=== PATIENT | female | born 1985 | race Caucasian/White ===

== ENCOUNTER 2022-12-12 09:28 | Inpatient (IN) | payer MEDICAID, OTHER ==
[~2022-12-12] VITALS: Ht 152.4 cm; Wt 44.0 kg
[~2022-12-12 09:28] MED LIST: GABA-1181 PO; QUET100T PO; VENL50TA44 PO
[2022-12-12] MEDS ORDERED: LIDOCAINE 2%/EPI 1:200,000/PF 20 ML VIAL SQ ONE (10:00)
[2022-12-12 10:18] LABS: ANION GAP 7 mmol/L (8-16); CALCIUM, TOTAL 10.1 mg/dL (8.8-10.5); CARBON DIOXIDE 26 mmol/L (22-29); CHLORIDE 101 mmol/L (98-107); CREATININE 0.78 mg/dL (0.60-1.30); GLUCOSE,RANDOM 234 mg/dL (70-110); POTASSIUM 3.9 mmol/L (3.5-5.1); SODIUM SERUM 134 mmol/L (136-145); UREA NITROGEN, BLOOD 16 mg/dL (7-18)
[2022-12-12 10:20] LABS: GLOMERULAR FILTR. RATE CALC > 60 mL/min (>60)
[2022-12-12 10:23] LABS: ALANINE AMINOTRANSFERASE 38 U/L (12-78); ALBUMIN 3.3 g/dL (3.4-5.0); ALKALINE PHOSPHATASE 72 U/L (46-116); ASPARTATE AMINOTRANSFERASE 49 U/L (15-37); BASOPHILS % (AUTO) 0.9 % (0.0-2.0); BILIRUBIN,TOTAL 0.5 mg/dL (0.1-1.0); EOSINOPHILS % (AUTO) 2.5 % (1.0-6.0); HEMATOCRIT 36.9 % (36-46); HEMOGLOBIN 11.5 g/dL (12.0-16.0); LYMPHOCYTES # (AUTO) 3.3 K/uL (1.0-4.8); LYMPHOCYTES % (AUTO) 41.9 % (22.0-44.0); MEAN CORPUSCULAR HEMOGLOBIN 23.4 pg (26.0-34.0); MEAN CORPUSCULAR HGB CONC 31.1 G/dL (31.0-37.0); MEAN CORPUSCULAR VOLUME 75 fL (80-100); MONOCYTES # (AUTO) 0.8 K/uL (0.1-1.0); MONOCYTES % (AUTO) 9.8 % (2.0-9.0); NEUTROPHILS # (AUTO) 3.6 K/uL (1.8-7.7); NEUTROPHILS % (AUTO) 44.9 % (40.0-70.0); PLATELET COUNT (AUTO) 386 K/uL (150-450); RED BLOOD CELL COUNT(AUTO) 4.91 MIL/uL (4.00-5.20); RED CELL DISTRIBUTION WIDTH 20.3 % (11.5-14.5); TOTAL PROTEIN, SERUM 7.3 g/dL (6.4-8.2)
[2022-12-12] MEDS ORDERED: FLUO20CA36 PO (10:30)
[2022-12-12] MEDS ORDERED: HYDR-3831 PO (10:30)
[2022-12-12] MEDS ORDERED: METO25XL PO (10:30)
[2022-12-12] MEDS ORDERED: APIX2.5T PO (10:30)
[2022-12-12] MEDS ORDERED: LISI-892 PO (10:30)
[2022-12-12 10:35] LABS: AMPHET/METH SCREEN,URINE NEGATIVE (NEGATIVE); BARBITURATE SCREEN, URINE NEGATIVE (NEGATIVE); BENZODIAZEPINES SCREEN,URINE NEGATIVE (NEGATIVE); CANNABINOID SCREEN,URINE NEGATIVE (NEGATIVE); COCAINE SCREEN,URINE NEGATIVE (NEGATIVE); METHADONE SCREEN, URINE NEGATIVE (NEGATIVE); OPIATE SCREEN,URINE NEGATIVE (NEGATIVE)
[2022-12-12] MEDS ORDERED: LIDOCAINE 1% 10 ML VIAL ONE ×2 (10:39→19:16)
[2022-12-12 10:40] LABS: PHENCYCLIDINE SCREEN,URINE NEGATIVE (NEGATIVE)
[2022-12-12] MEDS ORDERED: SODIUM CHLORIDE 0.9% 1,000 ML IV ONE (10:45)
[2022-12-12] MEDS ORDERED: PERTUSS(ACELL),DIPH,TET VAC/PF 0.5 ML SYRINGE IM. ONE (11:15)
[2022-12-12] MEDS ORDERED: BACITRACIN 0.9 GM PACKET OINTMENT TP ONE (11:15)
[2022-12-12] MEDS ORDERED: OLANZapine 5 MG RAPDIS TABLET PO PRN (12:45)
[2022-12-12] MEDS ORDERED: BUME1TAB6 PO (12:47)
[2022-12-12] MEDS ORDERED: VENL-68 PO (12:47)
[2022-12-12] MEDS ORDERED: OMEP40CA21 PO (12:47)
[2022-12-12] MEDS ORDERED: APIX5TAB PO (12:47)
[2022-12-12] MEDS ORDERED: HYDR-4808 PO (12:47)
[2022-12-12 12:51] LABS: COVID AG,FIA SOURCE NASAL SWAB
[2022-12-12] MEDS ORDERED: ACETAMINOPHEN 500 MG TABLET PO ONE (13:30)
[2022-12-12] MEDS ORDERED: CEPHALEXIN MONOHYDRATE 500 MG CAPSULE PO ONE (14:00)
[2022-12-12 16:15] VITALS: BP 148/90
[2022-12-12] MEDS: APIXABAN 5 MG TABLET PO SCH ×2 (17:30→18:20)
[2022-12-12] MEDS: GABAPENTIN 300 MG CAPSULE PO SCH (18:20)
[2022-12-12] MEDS ORDERED: TUBERCULIN, PURIFIED PROTEIN DERIVATIVE 5 TU/0.1 ML SYRINGE ID ONE (18:30)
[2022-12-12] MEDS ORDERED: MAGNESIUM HYDROXIDE SUSPENSION 30 ML UDCUP PO PRN (18:30)
[2022-12-12] MEDS ORDERED: QUEtiapine FUMARATE 100 MG TABLET PO PRN (18:30)
[2022-12-12] MEDS ORDERED: PROMETHAZINE HCL 25 MG TABLET PO PRN (18:30)
[2022-12-12] MEDS ORDERED: LOPERAMIDE HCL 2 MG CAPSULE PO PRN (18:30)
[2022-12-12] MEDS ORDERED: HydrOXYzine PAMOATE 50 MG CAPSULE PO PRN (18:30)
[2022-12-12] MEDS ORDERED: MAG HYDROX/AL HYDROX/SIMETH ES 30 ML SUSPENSION UDCUP PO PRN (18:30)
[2022-12-12] MEDS: MELATONIN 5 MG TABLET PO SCH (20:33)
[2022-12-12] MEDS: OLANZapine 5 MG RAPDIS TABLET PO SCH (20:33)
[2022-12-12 20:35] VITALS: BP 129/78
[2022-12-12] MEDS ORDERED: QUEtiapine FUMARATE 200 MG TABLET PO SCH (21:00)
[2022-12-12] MEDS: ACETAMINOPHEN 325 MG TABLET PO PRN (22:17)
[2022-12-13] MEDS: LORazepam 2 MG TABLET PO PRN ×3 (00:36→22:57)
[2022-12-13] MEDS: ZOLPIDEM TARTRATE 10 MG TABLET PO PRN (00:37)
[2022-12-13 04:10] VITALS: BP 110/62
[2022-12-13] MEDS: ACETAMINOPHEN 325 MG TABLET PO PRN (04:17)
[2022-12-13 07:25] LABS: HEMOGLOBIN A1C 7.9 % (3.8-5.6)
[2022-12-13 07:35] LABS: CHOL/HDL RATIO 6.1 (3.9-5.7); CHOLESTEROL 209 mg/dL (131-200); FREE T4 (FREE THYROXINE) 0.87 ng/dL (0.76-1.46); HDL CHOLESTEROL 34 mg/dL (40-60); LDL CHOL (CALC.) 114 mg/dL (0-130); THYROID STIMULATING HORMONE 1.01 uIU/mL (0.36-3.74); TRIGLYCERIDES 305 mg/dL (15-150)
[2022-12-13] MEDS: BUMETANIDE 1 MG TABLET PO SCH ×2 (08:27→16:53)
[2022-12-13] MEDS: GABAPENTIN 300 MG CAPSULE PO SCH ×3 (08:27→16:53)
[2022-12-13] MEDS: APIXABAN 5 MG TABLET PO SCH ×2 (08:27→16:53)
[2022-12-13] MEDS: OMEGA-3/DHA/EPA/FISH OIL 1,000 MG CAPSULE PO SCH (08:27)
[2022-12-13] MEDS: FLUoxetine HCL 20 MG CAPSULE PO SCH (08:28)
[2022-12-13] MEDS: FOLIC ACID 1 MG TABLET PO SCH (08:28)
[2022-12-13] MEDS: MULTIVITAMINS WITH MINERALS, THERAPEUTIC TABLET PO SCH (08:28)
[2022-12-13] MEDS: OMEPRAZOLE 20 MG CAPSULE PO SCH (08:28)
[2022-12-13] MEDS: METOPROLOL SUCCINATE 25 MG ER TABLET PO SCH (08:28)
[2022-12-13] MEDS: THIAMINE 100 MG TABLET PO SCH ×2 (08:28→16:54)
[2022-12-13] MEDS: LISINOPRIL 5 MG TABLET PO SCH (08:28)
[2022-12-13] MEDS ORDERED: IBUPROFEN 600 MG TABLET PO PRN (08:45)
[2022-12-13 09:00] VITALS: BP 115/78
[2022-12-13] MEDS ORDERED: DEXTROSE 50%-WATER 25 GM/50 ML SYRINGE IVP PRN (09:00)
[2022-12-13] MEDS ORDERED: GABAPENTIN 300 MG CAPSULE PO SCH (09:00)
[2022-12-13 09:47] LABS: HCG,QUANTITATIVE < 1 mIU/mL (0-6)
[2022-12-13 11:46] LABS: GLUCOMETER DEV NAME(LOC) 3E.I 2; GLUCOSE,POINT OF CARE 199 MG/DL (70-110)
[2022-12-13] MEDS: INSULIN LISPRO 100 UNITS/ML SQ PRN ×3 (11:56→21:10)
[2022-12-13] MEDS: MetFORMIN HCL 500 MG TABLET PO SCH (16:53)
[2022-12-13 16:56] LABS: GLUCOMETER DEV NAME(LOC) 3E.I 2; GLUCOSE,POINT OF CARE 167 MG/DL (70-110)
[2022-12-13 17:12] VITALS: BP 103/72
[2022-12-13] MEDS: OLANZapine 5 MG RAPDIS TABLET PO SCH (20:43)
[2022-12-13] MEDS: MELATONIN 5 MG TABLET PO SCH (20:44)
[2022-12-13 21:21] LABS: GLUCOMETER DEV NAME(LOC) 3E.I 2; GLUCOSE,POINT OF CARE 164 MG/DL (70-110)
[2022-12-14] MEDS: ZOLPIDEM TARTRATE 10 MG TABLET PO PRN ×2 (00:21→21:42)
[2022-12-14 06:17] LABS: GLUCOMETER DEV NAME(LOC) 3E.I 2; GLUCOSE,POINT OF CARE 143 MG/DL (70-110)
[2022-12-14] MEDS: INSULIN LISPRO 100 UNITS/ML SQ PRN ×2 (06:48→21:06)
[2022-12-14] MEDS: MetFORMIN HCL 500 MG TABLET PO SCH ×3 (06:58→16:32)
[2022-12-14 08:00] VITALS: BP 106/67
[2022-12-14] MEDS: GABAPENTIN 300 MG CAPSULE PO SCH ×3 (09:08→16:05)
[2022-12-14] MEDS: OMEPRAZOLE 20 MG CAPSULE PO SCH (09:08)
[2022-12-14] MEDS: OMEGA-3/DHA/EPA/FISH OIL 1,000 MG CAPSULE PO SCH (09:08)
[2022-12-14] MEDS: FLUoxetine HCL 20 MG CAPSULE PO SCH (09:08)
[2022-12-14] MEDS: THIAMINE 100 MG TABLET PO SCH ×2 (09:08→16:05)
[2022-12-14] MEDS: LamoTRIgine 25 MG TABLET PO SCH (09:08)
[2022-12-14] MEDS: MULTIVITAMINS WITH MINERALS, THERAPEUTIC TABLET PO SCH (09:08)
[2022-12-14] MEDS: LISINOPRIL 5 MG TABLET PO SCH (09:09)
[2022-12-14] MEDS: FOLIC ACID 1 MG TABLET PO SCH (09:09)
[2022-12-14] MEDS: APIXABAN 5 MG TABLET PO SCH ×2 (09:09→16:05)
[2022-12-14] MEDS: BUMETANIDE 1 MG TABLET PO SCH ×2 (09:10→16:05)
[2022-12-14] MEDS: METOPROLOL SUCCINATE 25 MG ER TABLET PO SCH (09:10)
[2022-12-14 12:21] LABS: GLUCOMETER DEV NAME(LOC) 3E.I 2; GLUCOSE,POINT OF CARE 128 MG/DL (70-110)
[2022-12-14 16:47] LABS: GLUCOMETER DEV NAME(LOC) 3E.I 2; GLUCOSE,POINT OF CARE 117 MG/DL (70-110)
[2022-12-14] MEDS: OXYMETAZOLINE 0.05% NASAL SCH (17:19)
[2022-12-14] MEDS: LORazepam 2 MG TABLET PO PRN (19:30)
[2022-12-14 20:56] LABS: GLUCOMETER DEV NAME(LOC) 3E.I 2; GLUCOSE,POINT OF CARE 164 MG/DL (70-110)
[2022-12-14] MEDS: OLANZapine 10 MG RAPDIS TABLET PO SCH (20:56)
[2022-12-14] MEDS: MELATONIN 5 MG TABLET PO SCH (20:56)
[2022-12-15 06:26] LABS: GLUCOMETER DEV NAME(LOC) 3E.I 2; GLUCOSE,POINT OF CARE 145 MG/DL (70-110)
[2022-12-15] MEDS: MetFORMIN HCL 500 MG TABLET PO SCH ×2 (06:39→17:05)
[2022-12-15] MEDS: INSULIN LISPRO 100 UNITS/ML SQ PRN ×3 (06:39→21:09)
[2022-12-15 08:00] VITALS: BP 119/61
[2022-12-15] MEDS: GABAPENTIN 300 MG CAPSULE PO SCH ×3 (08:35→17:06)
[2022-12-15] MEDS: MULTIVITAMINS WITH MINERALS, THERAPEUTIC TABLET PO SCH (08:35)
[2022-12-15] MEDS: OMEGA-3/DHA/EPA/FISH OIL 1,000 MG CAPSULE PO SCH (08:35)
[2022-12-15] MEDS: OXYMETAZOLINE 0.05% NASAL SCH ×2 (08:35→17:05)
[2022-12-15] MEDS: METOPROLOL SUCCINATE 25 MG ER TABLET PO SCH (08:36)
[2022-12-15] MEDS: BUMETANIDE 1 MG TABLET PO SCH ×2 (08:36→17:06)
[2022-12-15] MEDS: FLUoxetine HCL 20 MG CAPSULE PO SCH (08:36)
[2022-12-15] MEDS: APIXABAN 5 MG TABLET PO SCH ×2 (08:36→17:06)
[2022-12-15] MEDS: OMEPRAZOLE 20 MG CAPSULE PO SCH (08:36)
[2022-12-15] MEDS: FOLIC ACID 1 MG TABLET PO SCH (08:36)
[2022-12-15] MEDS: LISINOPRIL 5 MG TABLET PO SCH (08:37)
[2022-12-15] MEDS: THIAMINE 100 MG TABLET PO SCH ×2 (08:37→17:06)
[2022-12-15] MEDS: LamoTRIgine 25 MG TABLET PO SCH (08:38)
[2022-12-15 11:26] LABS: GLUCOMETER DEV NAME(LOC) 3E.I 2; GLUCOSE,POINT OF CARE 133 MG/DL (70-110)
[2022-12-15 16:00] VITALS: BP 104/59
[2022-12-15 17:06] LABS: GLUCOMETER DEV NAME(LOC) 3E.I 2; GLUCOSE,POINT OF CARE 144 MG/DL (70-110)
[2022-12-15] MEDS: LORazepam 2 MG TABLET PO PRN (19:46)
[2022-12-15 20:56] LABS: GLUCOMETER DEV NAME(LOC) 3E.I 2; GLUCOSE,POINT OF CARE 171 MG/DL (70-110)
[2022-12-15] MEDS: OLANZapine 10 MG RAPDIS TABLET PO SCH (21:21)
[2022-12-15] MEDS: MELATONIN 5 MG TABLET PO SCH (21:21)
[2022-12-15] MEDS: ZOLPIDEM TARTRATE 10 MG TABLET PO PRN (22:51)
[2022-12-16] MEDS: LORazepam 2 MG TABLET PO PRN (02:29)
[2022-12-16] MEDS: OLANZapine 5 MG RAPDIS TABLET PO PRN (02:29)
[2022-12-16 06:26] LABS: GLUCOMETER DEV NAME(LOC) 3E.I 2; GLUCOSE,POINT OF CARE 140 MG/DL (70-110)
[2022-12-16] MEDS: MetFORMIN HCL 500 MG TABLET PO SCH ×2 (06:36→16:53)
[2022-12-16 08:00] VITALS: BP 103/66
[2022-12-16] MEDS: METOPROLOL SUCCINATE 25 MG ER TABLET PO SCH (09:00)
[2022-12-16] MEDS: LISINOPRIL 5 MG TABLET PO SCH (09:00)
[2022-12-16] MEDS: OXYMETAZOLINE 0.05% NASAL SCH ×2 (09:16→16:51)
[2022-12-16] MEDS: BUMETANIDE 1 MG TABLET PO SCH ×2 (09:18→16:51)
[2022-12-16] MEDS: APIXABAN 5 MG TABLET PO SCH ×2 (09:18→16:52)
[2022-12-16] MEDS: THIAMINE 100 MG TABLET PO SCH ×2 (09:21→16:53)
[2022-12-16] MEDS: LamoTRIgine 25 MG TABLET PO SCH (09:21)
[2022-12-16] MEDS: OMEGA-3/DHA/EPA/FISH OIL 1,000 MG CAPSULE PO SCH (09:21)
[2022-12-16] MEDS: MULTIVITAMINS WITH MINERALS, THERAPEUTIC TABLET PO SCH (09:21)
[2022-12-16] MEDS: OMEPRAZOLE 20 MG CAPSULE PO SCH (09:21)
[2022-12-16] MEDS: GABAPENTIN 300 MG CAPSULE PO SCH ×3 (09:21→16:53)
[2022-12-16] MEDS: FLUoxetine HCL 20 MG CAPSULE PO SCH (09:22)
[2022-12-16] MEDS: FOLIC ACID 1 MG TABLET PO SCH (09:29)
[2022-12-16 11:11] LABS: GLUCOMETER DEV NAME(LOC) 3E.I 2; GLUCOSE,POINT OF CARE 121 MG/DL (70-110)
[2022-12-16 16:00] VITALS: BP 101/60
[2022-12-16 16:37] LABS: GLUCOMETER DEV NAME(LOC) 3E.I 2; GLUCOSE,POINT OF CARE 177 MG/DL (70-110)
[2022-12-16] MEDS: INSULIN LISPRO 100 UNITS/ML SQ PRN ×2 (16:56→21:17)
[2022-12-16] MEDS: OLANZapine 10 MG RAPDIS TABLET PO SCH (20:22)
[2022-12-16] MEDS: MELATONIN 5 MG TABLET PO SCH (20:23)
[2022-12-16 20:56] LABS: GLUCOMETER DEV NAME(LOC) 3E.I 2; GLUCOSE,POINT OF CARE 164 MG/DL (70-110)
[2022-12-17 05:56] LABS: GLUCOMETER DEV NAME(LOC) 3E.I 2; GLUCOSE,POINT OF CARE 140 MG/DL (70-110)
[2022-12-17] MEDS: MetFORMIN HCL 500 MG TABLET PO SCH ×2 (06:35→16:30)
[2022-12-17] MEDS: OMEGA-3/DHA/EPA/FISH OIL 1,000 MG CAPSULE PO SCH (10:04)
[2022-12-17] MEDS: GABAPENTIN 300 MG CAPSULE PO SCH ×3 (10:04→16:30)
[2022-12-17] MEDS: FOLIC ACID 1 MG TABLET PO SCH (10:04)
[2022-12-17] MEDS: METOPROLOL SUCCINATE 25 MG ER TABLET PO SCH (10:04)
[2022-12-17] MEDS: LamoTRIgine 25 MG TABLET PO SCH ×2 (10:04→13:50)
[2022-12-17] MEDS: MULTIVITAMINS WITH MINERALS, THERAPEUTIC TABLET PO SCH (10:04)
[2022-12-17] MEDS: OMEPRAZOLE 20 MG CAPSULE PO SCH (10:05)
[2022-12-17] MEDS: THIAMINE 100 MG TABLET PO SCH ×2 (10:05→16:30)
[2022-12-17] MEDS: FLUoxetine HCL 20 MG CAPSULE PO SCH (10:05)
[2022-12-17] MEDS: LISINOPRIL 5 MG TABLET PO SCH (10:06)
[2022-12-17] MEDS: OXYMETAZOLINE 0.05% NASAL SCH ×2 (10:07→16:31)
[2022-12-17] MEDS: APIXABAN 5 MG TABLET PO SCH ×2 (10:08→16:31)
[2022-12-17] MEDS: BUMETANIDE 1 MG TABLET PO SCH ×2 (10:08→16:31)
[2022-12-17 11:12] VITALS: BP 107/60
[2022-12-17 12:06] LABS: GLUCOMETER DEV NAME(LOC) 3E.I 2; GLUCOSE,POINT OF CARE 128 MG/DL (70-110)
[2022-12-17] MEDS: INSULIN LISPRO 100 UNITS/ML SQ PRN ×2 (12:12→21:34)
[2022-12-17 16:36] LABS: GLUCOMETER DEV NAME(LOC) 3E.I 2; GLUCOSE,POINT OF CARE 99 MG/DL (70-110)
[2022-12-17 20:42] LABS: GLUCOMETER DEV NAME(LOC) 3E.I 2; GLUCOSE,POINT OF CARE 174 MG/DL (70-110)
[2022-12-17] MEDS: MELATONIN 5 MG TABLET PO SCH (20:46)
[2022-12-17] MEDS: OLANZapine 10 MG RAPDIS TABLET PO SCH (20:46)
[2022-12-18 06:13] LABS: GLUCOMETER DEV NAME(LOC) 3E.I 2; GLUCOSE,POINT OF CARE 110 MG/DL (70-110)
[2022-12-18] MEDS: MetFORMIN HCL 500 MG TABLET PO SCH ×2 (06:43→16:41)
[2022-12-18] MEDS: INSULIN LISPRO 100 UNITS/ML SQ PRN ×3 (06:44→20:55)
[2022-12-18 08:00] VITALS: BP 101/63
[2022-12-18 08:02] LABS: COVID AG,FIA SOURCE NASAL SWAB
[2022-12-18] MEDS: LamoTRIgine 25 MG TABLET PO SCH (09:25)
[2022-12-18] MEDS: LISINOPRIL 5 MG TABLET PO SCH (09:25)
[2022-12-18] MEDS: THIAMINE 100 MG TABLET PO SCH ×2 (09:25→16:41)
[2022-12-18] MEDS: APIXABAN 5 MG TABLET PO SCH ×2 (09:25→16:41)
[2022-12-18] MEDS: OMEGA-3/DHA/EPA/FISH OIL 1,000 MG CAPSULE PO SCH (09:25)
[2022-12-18] MEDS: OXYMETAZOLINE 0.05% NASAL SCH ×2 (09:26→16:42)
[2022-12-18] MEDS: MULTIVITAMINS WITH MINERALS, THERAPEUTIC TABLET PO SCH (09:26)
[2022-12-18] MEDS: FLUoxetine HCL 20 MG CAPSULE PO SCH (09:26)
[2022-12-18] MEDS: BUMETANIDE 1 MG TABLET PO SCH ×2 (09:26→16:41)
[2022-12-18] MEDS: GABAPENTIN 300 MG CAPSULE PO SCH ×3 (09:26→16:41)
[2022-12-18] MEDS: METOPROLOL SUCCINATE 25 MG ER TABLET PO SCH (09:26)
[2022-12-18] MEDS: OMEPRAZOLE 20 MG CAPSULE PO SCH (09:26)
[2022-12-18] MEDS: FOLIC ACID 1 MG TABLET PO SCH (09:26)
[2022-12-18 11:36] LABS: GLUCOMETER DEV NAME(LOC) 3E.I 2; GLUCOSE,POINT OF CARE 122 MG/DL (70-110)
[2022-12-18 16:00] VITALS: BP 102/53
[2022-12-18 16:17] LABS: GLUCOMETER DEV NAME(LOC) 3E.I 2; GLUCOSE,POINT OF CARE 209 MG/DL (70-110)
[2022-12-18] MEDS: ACETAMINOPHEN 325 MG TABLET PO PRN (20:25)
[2022-12-18 20:26] VITALS: BP 136/75
[2022-12-18] MEDS: MELATONIN 5 MG TABLET PO SCH (20:26)
[2022-12-18] MEDS: OLANZapine 10 MG RAPDIS TABLET PO SCH (20:28)
[2022-12-18 20:34] LABS: GLUCOMETER DEV NAME(LOC) 3E.I 2; GLUCOSE,POINT OF CARE 119 MG/DL (70-110)
[2022-12-18] MEDS: ZOLPIDEM TARTRATE 10 MG TABLET PO PRN (21:39)
[2022-12-19] MEDS: MetFORMIN HCL 500 MG TABLET PO SCH ×2 (06:39→17:21)
[2022-12-19] MEDS: INSULIN LISPRO 100 UNITS/ML SQ PRN ×2 (06:57→20:23)
[2022-12-19 07:04] LABS: GLUCOMETER DEV NAME(LOC) 3E.I 2; GLUCOSE,POINT OF CARE 119 MG/DL (70-110)
[2022-12-19 08:06] VITALS: BP 102/56
[2022-12-19] MEDS: LamoTRIgine 25 MG TABLET PO SCH (08:10)
[2022-12-19] MEDS: LISINOPRIL 5 MG TABLET PO SCH (08:10)
[2022-12-19] MEDS: APIXABAN 5 MG TABLET PO SCH ×2 (08:10→16:28)
[2022-12-19] MEDS: FLUoxetine HCL 20 MG CAPSULE PO SCH (08:10)
[2022-12-19] MEDS: FOLIC ACID 1 MG TABLET PO SCH (08:10)
[2022-12-19] MEDS: MULTIVITAMINS WITH MINERALS, THERAPEUTIC TABLET PO SCH (08:10)
[2022-12-19] MEDS: OMEGA-3/DHA/EPA/FISH OIL 1,000 MG CAPSULE PO SCH (08:10)
[2022-12-19] MEDS: OMEPRAZOLE 20 MG CAPSULE PO SCH (08:10)
[2022-12-19] MEDS: GABAPENTIN 300 MG CAPSULE PO SCH ×3 (08:10→16:28)
[2022-12-19] MEDS: OXYMETAZOLINE 0.05% NASAL SCH ×2 (08:10→16:29)
[2022-12-19] MEDS: THIAMINE 100 MG TABLET PO SCH ×2 (08:10→16:29)
[2022-12-19] MEDS: BUMETANIDE 1 MG TABLET PO SCH ×2 (08:13→16:29)
[2022-12-19] MEDS: METOPROLOL SUCCINATE 25 MG ER TABLET PO SCH (09:00)
[2022-12-19 11:57] LABS: GLUCOMETER DEV NAME(LOC) 3E.I 2; GLUCOSE,POINT OF CARE 125 MG/DL (70-110)
[2022-12-19 14:42] VITALS: BP 118/64
[2022-12-19] MEDS: ACETAMINOPHEN 325 MG TABLET PO PRN (14:42)
[2022-12-19 15:42] VITALS: BP 106/74
[2022-12-19 16:31] LABS: GLUCOMETER DEV NAME(LOC) 3E.I 2; GLUCOSE,POINT OF CARE 130 MG/DL (70-110)
[2022-12-19 16:40] VITALS: BP 114/73
[2022-12-19] MEDS: OLANZapine 10 MG RAPDIS TABLET PO SCH (20:11)
[2022-12-19] MEDS: MELATONIN 5 MG TABLET PO SCH (20:11)
[2022-12-19 20:30] LABS: GLUCOMETER DEV NAME(LOC) 3E.I 2; GLUCOSE,POINT OF CARE 242 MG/DL (70-110)
[2022-12-19 20:58] VITALS: BP 106/7
[2022-12-19] MEDS: ZOLPIDEM TARTRATE 10 MG TABLET PO PRN (21:02)
[2022-12-20 05:41] LABS: GLUCOMETER DEV NAME(LOC) 3E.I 2; GLUCOSE,POINT OF CARE 128 MG/DL (70-110)
[2022-12-20] MEDS: MetFORMIN HCL 500 MG TABLET PO SCH ×2 (06:35→16:18)
[2022-12-20] MEDS: OMEGA-3/DHA/EPA/FISH OIL 1,000 MG CAPSULE PO SCH (08:22)
[2022-12-20] MEDS: OMEPRAZOLE 20 MG CAPSULE PO SCH (08:23)
[2022-12-20] MEDS: MULTIVITAMINS WITH MINERALS, THERAPEUTIC TABLET PO SCH (08:23)
[2022-12-20] MEDS: FLUoxetine HCL 20 MG CAPSULE PO SCH (08:23)
[2022-12-20] MEDS: GABAPENTIN 300 MG CAPSULE PO SCH ×3 (08:23→16:18)
[2022-12-20] MEDS: FOLIC ACID 1 MG TABLET PO SCH (08:24)
[2022-12-20] MEDS: BUMETANIDE 1 MG TABLET PO SCH ×2 (08:24→16:18)
[2022-12-20] MEDS: THIAMINE 100 MG TABLET PO SCH ×2 (08:24→16:18)
[2022-12-20] MEDS: LISINOPRIL 5 MG TABLET PO SCH (08:24)
[2022-12-20] MEDS: METOPROLOL SUCCINATE 25 MG ER TABLET PO SCH (08:24)
[2022-12-20] MEDS: OXYMETAZOLINE 0.05% NASAL SCH ×2 (08:25→16:20)
[2022-12-20] MEDS: APIXABAN 5 MG TABLET PO SCH ×2 (08:25→16:18)
[2022-12-20] MEDS: LamoTRIgine 25 MG TABLET PO SCH (08:28)
[2022-12-20 08:34] VITALS: BP 113/67
[2022-12-20 13:18] VITALS: BP 122/78
[2022-12-20] MEDS: ACETAMINOPHEN 325 MG TABLET PO PRN (13:23)
[2022-12-20 17:07] LABS: GLUCOMETER DEV NAME(LOC) 3E.I 2; GLUCOSE,POINT OF CARE 167 MG/DL (70-110)
[2022-12-20] MEDS: INSULIN LISPRO 100 UNITS/ML SQ PRN ×2 (17:33→21:21)
[2022-12-20 17:59] VITALS: BP 107/65
[2022-12-20] MEDS: MELATONIN 5 MG TABLET PO SCH (20:45)
[2022-12-20] MEDS: OLANZapine 10 MG RAPDIS TABLET PO SCH (20:45)
[2022-12-20] MEDS: ZOLPIDEM TARTRATE 10 MG TABLET PO PRN (21:03)
[2022-12-20 21:41] LABS: GLUCOMETER DEV NAME(LOC) 3E.I 2; GLUCOSE,POINT OF CARE 214 MG/DL (70-110)
[2022-12-21] MEDS: MetFORMIN HCL 500 MG TABLET PO SCH ×2 (06:45→16:28)
[2022-12-21] MEDS: INSULIN LISPRO 100 UNITS/ML SQ PRN ×2 (06:46→17:45)
[2022-12-21 07:16] LABS: GLUCOMETER DEV NAME(LOC) 3E.I 2; GLUCOSE,POINT OF CARE 126 MG/DL (70-110)
[2022-12-21 08:30] VITALS: BP 107/65
[2022-12-21] MEDS: METOPROLOL SUCCINATE 25 MG ER TABLET PO SCH (08:35)
[2022-12-21] MEDS: FLUoxetine HCL 20 MG CAPSULE PO SCH (08:35)
[2022-12-21] MEDS: GABAPENTIN 300 MG CAPSULE PO SCH ×3 (08:35→16:28)
[2022-12-21] MEDS: OMEPRAZOLE 20 MG CAPSULE PO SCH (08:35)
[2022-12-21] MEDS: OMEGA-3/DHA/EPA/FISH OIL 1,000 MG CAPSULE PO SCH (08:35)
[2022-12-21] MEDS: APIXABAN 5 MG TABLET PO SCH ×2 (08:35→16:28)
[2022-12-21] MEDS: BUMETANIDE 1 MG TABLET PO SCH ×2 (08:36→16:28)
[2022-12-21] MEDS: FOLIC ACID 1 MG TABLET PO SCH (08:36)
[2022-12-21] MEDS: LISINOPRIL 5 MG TABLET PO SCH (08:36)
[2022-12-21] MEDS: THIAMINE 100 MG TABLET PO SCH ×2 (08:36→16:28)
[2022-12-21] MEDS: MULTIVITAMINS WITH MINERALS, THERAPEUTIC TABLET PO SCH (08:36)
[2022-12-21] MEDS: LamoTRIgine 25 MG TABLET PO SCH (08:36)
[2022-12-21] MEDS: OXYMETAZOLINE 0.05% NASAL SCH ×2 (08:37→16:28)
[2022-12-21 11:51] LABS: GLUCOMETER DEV NAME(LOC) 3E.I 2; GLUCOSE,POINT OF CARE 101 MG/DL (70-110)
[2022-12-21 16:54] VITALS: BP 97/60
[2022-12-21 16:56] LABS: GLUCOMETER DEV NAME(LOC) 3E.I 2; GLUCOSE,POINT OF CARE 152 MG/DL (70-110)
[2022-12-21 17:59] VITALS: BP 149/94
[2022-12-21] MEDS: LORazepam 2 MG TABLET PO PRN (18:00)
[2022-12-21] MEDS: MELATONIN 5 MG TABLET PO SCH (20:15)
[2022-12-21] MEDS: OLANZapine 10 MG RAPDIS TABLET PO SCH (20:15)
[2022-12-21 20:41] LABS: GLUCOMETER DEV NAME(LOC) 3E.I 2; GLUCOSE,POINT OF CARE 135 MG/DL (70-110)
[2022-12-21] MEDS: ZOLPIDEM TARTRATE 10 MG TABLET PO PRN (21:19)
[2022-12-22 06:21] LABS: GLUCOMETER DEV NAME(LOC) 3E.I 2; GLUCOSE,POINT OF CARE 113 MG/DL (70-110)
[2022-12-22] MEDS: MetFORMIN HCL 500 MG TABLET PO SCH ×2 (06:36→16:27)
[2022-12-22] MEDS: APIXABAN 5 MG TABLET PO SCH ×2 (08:35→16:26)
[2022-12-22] MEDS: OXYMETAZOLINE 0.05% NASAL SCH ×2 (08:36→16:26)
[2022-12-22] MEDS: MULTIVITAMINS WITH MINERALS, THERAPEUTIC TABLET PO SCH (08:36)
[2022-12-22] MEDS: GABAPENTIN 300 MG CAPSULE PO SCH ×3 (08:36→16:27)
[2022-12-22] MEDS: LISINOPRIL 5 MG TABLET PO SCH ×2 (08:37→09:00)
[2022-12-22] MEDS: FOLIC ACID 1 MG TABLET PO SCH (08:37)
[2022-12-22] MEDS: OMEGA-3/DHA/EPA/FISH OIL 1,000 MG CAPSULE PO SCH (08:39)
[2022-12-22] MEDS: FLUoxetine HCL 20 MG CAPSULE PO SCH (08:39)
[2022-12-22] MEDS: THIAMINE 100 MG TABLET PO SCH ×2 (08:40→16:27)
[2022-12-22] MEDS: BUMETANIDE 1 MG TABLET PO SCH ×2 (08:40→16:26)
[2022-12-22] MEDS: METOPROLOL SUCCINATE 25 MG ER TABLET PO SCH ×2 (08:40→09:00)
[2022-12-22] MEDS: LamoTRIgine 25 MG TABLET PO SCH (08:40)
[2022-12-22] MEDS: OMEPRAZOLE 20 MG CAPSULE PO SCH (08:40)
[2022-12-22 09:00] VITALS: BP 94/58
[2022-12-22] MEDS: LORazepam 2 MG TABLET PO PRN ×2 (10:34→19:00)
[2022-12-22] MEDS: INSULIN LISPRO 100 UNITS/ML SQ PRN (11:31)
[2022-12-22 11:46] LABS: GLUCOMETER DEV NAME(LOC) 3E.I 2; GLUCOSE,POINT OF CARE 176 MG/DL (70-110)
[2022-12-22 16:00] VITALS: BP 101/67
[2022-12-22 17:51] LABS: GLUCOMETER DEV NAME(LOC) 3E.I 2; GLUCOSE,POINT OF CARE 117 MG/DL (70-110)
[2022-12-22 20:21] LABS: GLUCOMETER DEV NAME(LOC) 3E.I 2; GLUCOSE,POINT OF CARE 176 MG/DL (70-110)
[2022-12-22] MEDS: OLANZapine 10 MG RAPDIS TABLET PO SCH (20:30)
[2022-12-22] MEDS: MELATONIN 5 MG TABLET PO SCH (20:31)
[2022-12-22] MEDS: ZOLPIDEM TARTRATE 10 MG TABLET PO PRN (22:47)
[2022-12-23 06:17] LABS: GLUCOMETER DEV NAME(LOC) 3E.I 2; GLUCOSE,POINT OF CARE 120 MG/DL (70-110)
[2022-12-23] MEDS: MetFORMIN HCL 500 MG TABLET PO SCH ×2 (06:41→17:35)
[2022-12-23 08:16] VITALS: BP 118/69
[2022-12-23] MEDS: MULTIVITAMINS WITH MINERALS, THERAPEUTIC TABLET PO SCH (10:42)
[2022-12-23] MEDS: OMEPRAZOLE 20 MG CAPSULE PO SCH (10:42)
[2022-12-23] MEDS: APIXABAN 5 MG TABLET PO SCH ×2 (10:42→17:35)
[2022-12-23] MEDS: FLUoxetine HCL 20 MG CAPSULE PO SCH (10:42)
[2022-12-23] MEDS: GABAPENTIN 400 MG CAPSULE PO SCH ×3 (10:42→17:35)
[2022-12-23] MEDS: METOPROLOL SUCCINATE 25 MG ER TABLET PO SCH (10:42)
[2022-12-23] MEDS: LamoTRIgine 25 MG TABLET PO SCH (10:42)
[2022-12-23] MEDS: OMEGA-3/DHA/EPA/FISH OIL 1,000 MG CAPSULE PO SCH (10:43)
[2022-12-23] MEDS: BUMETANIDE 1 MG TABLET PO SCH ×2 (10:43→17:35)
[2022-12-23] MEDS: LISINOPRIL 5 MG TABLET PO SCH (10:43)
[2022-12-23] MEDS: OXYMETAZOLINE 0.05% NASAL SCH ×2 (10:43→17:35)
[2022-12-23] MEDS: INSULIN LISPRO 100 UNITS/ML SQ PRN ×3 (11:53→20:12)
[2022-12-23 11:56] LABS: GLUCOMETER DEV NAME(LOC) 3E.I 2; GLUCOSE,POINT OF CARE 165 MG/DL (70-110)
[2022-12-23] MEDS: LORazepam 2 MG TABLET PO PRN (12:01)
[2022-12-23] MEDS: OLANZapine 5 MG RAPDIS TABLET PO PRN (12:01)
[2022-12-23 16:20] VITALS: BP 98/61
[2022-12-23 17:25] LABS: GLUCOMETER DEV NAME(LOC) 3E.I 2; GLUCOSE,POINT OF CARE 154 MG/DL (70-110)
[2022-12-23 20:01] LABS: GLUCOMETER DEV NAME(LOC) 3E.I 2; GLUCOSE,POINT OF CARE 192 MG/DL (70-110)
[2022-12-23] MEDS: MELATONIN 5 MG TABLET PO SCH (20:11)
[2022-12-23] MEDS: OLANZapine 10 MG RAPDIS TABLET PO SCH (20:12)
[2022-12-23] MEDS: ZOLPIDEM TARTRATE 10 MG TABLET PO PRN (20:19)
[2022-12-24 06:12] LABS: GLUCOMETER DEV NAME(LOC) 3E.I 2; GLUCOSE,POINT OF CARE 116 MG/DL (70-110)
[2022-12-24] MEDS: MetFORMIN HCL 500 MG TABLET PO SCH ×2 (06:47→16:02)
[2022-12-24] MEDS: GABAPENTIN 300 MG CAPSULE PO SCH ×3 (09:03→16:02)
[2022-12-24] MEDS: OMEPRAZOLE 20 MG CAPSULE PO SCH (09:04)
[2022-12-24] MEDS: FLUoxetine HCL 20 MG CAPSULE PO SCH (09:04)
[2022-12-24] MEDS: OLANZapine 2.5 MG TABLET PO SCH ×3 (09:04→16:02)
[2022-12-24] MEDS: METOPROLOL SUCCINATE 25 MG ER TABLET PO SCH (09:04)
[2022-12-24] MEDS: APIXABAN 5 MG TABLET PO SCH ×2 (09:04→16:02)
[2022-12-24] MEDS: MULTIVITAMINS WITH MINERALS, THERAPEUTIC TABLET PO SCH (09:04)
[2022-12-24] MEDS: LamoTRIgine 25 MG TABLET PO SCH (09:05)
[2022-12-24] MEDS: OXYMETAZOLINE 0.05% NASAL SCH ×2 (09:05→16:03)
[2022-12-24] MEDS: BUMETANIDE 1 MG TABLET PO SCH ×2 (09:05→16:02)
[2022-12-24] MEDS: LISINOPRIL 5 MG TABLET PO SCH (09:05)
[2022-12-24 09:08] VITALS: BP 120/74
[2022-12-24] MEDS: OMEGA-3/DHA/EPA/FISH OIL 1,000 MG CAPSULE PO SCH (09:08)
[2022-12-24 12:06] LABS: GLUCOMETER DEV NAME(LOC) 3E.I 2; GLUCOSE,POINT OF CARE 87 MG/DL (70-110)
[2022-12-24] MEDS: LORazepam 2 MG TABLET PO PRN (15:07)
[2022-12-24 16:11] VITALS: BP 109/73
[2022-12-24 17:37] LABS: GLUCOMETER DEV NAME(LOC) 3E.I 2; GLUCOSE,POINT OF CARE 181 MG/DL (70-110)
[2022-12-24] MEDS: INSULIN LISPRO 100 UNITS/ML SQ PRN ×2 (17:45→20:47)
[2022-12-24 20:26] LABS: GLUCOMETER DEV NAME(LOC) 3E.I 2; GLUCOSE,POINT OF CARE 180 MG/DL (70-110)
[2022-12-24] MEDS: OLANZapine 10 MG RAPDIS TABLET PO SCH (20:47)
[2022-12-24] MEDS: MELATONIN 5 MG TABLET PO SCH (20:47)
[2022-12-25 06:17] LABS: GLUCOMETER DEV NAME(LOC) 3E.I 2; GLUCOSE,POINT OF CARE 177 MG/DL (70-110)
[2022-12-25] MEDS: INSULIN LISPRO 100 UNITS/ML SQ PRN ×3 (06:33→21:08)
[2022-12-25] MEDS: MetFORMIN HCL 500 MG TABLET PO SCH ×3 (06:39→17:04)
[2022-12-25 08:18] VITALS: BP 126/82
[2022-12-25 08:23] LABS: COVID AG,FIA SOURCE NASAL SWAB
[2022-12-25] MEDS: FLUoxetine HCL 20 MG CAPSULE PO SCH (10:16)
[2022-12-25] MEDS: GABAPENTIN 400 MG CAPSULE PO SCH ×3 (10:16→16:01)
[2022-12-25] MEDS: OLANZapine 2.5 MG TABLET PO SCH ×3 (10:16→16:01)
[2022-12-25] MEDS: OMEGA-3/DHA/EPA/FISH OIL 1,000 MG CAPSULE PO SCH (10:17)
[2022-12-25] MEDS: BUMETANIDE 1 MG TABLET PO SCH ×2 (10:17→16:01)
[2022-12-25] MEDS: APIXABAN 5 MG TABLET PO SCH ×2 (10:17→16:01)
[2022-12-25] MEDS: MULTIVITAMINS WITH MINERALS, THERAPEUTIC TABLET PO SCH (10:17)
[2022-12-25] MEDS: OMEPRAZOLE 20 MG CAPSULE PO SCH (10:17)
[2022-12-25] MEDS: LISINOPRIL 5 MG TABLET PO SCH (10:17)
[2022-12-25] MEDS: METOPROLOL SUCCINATE 25 MG ER TABLET PO SCH (10:18)
[2022-12-25] MEDS: LamoTRIgine 25 MG TABLET PO SCH (10:19)
[2022-12-25] MEDS: OXYMETAZOLINE 0.05% NASAL SCH ×2 (10:19→16:01)
[2022-12-25] MEDS: LORazepam 2 MG TABLET PO PRN ×2 (10:25→16:01)
[2022-12-25 11:52] LABS: GLUCOMETER DEV NAME(LOC) 3E.I 2; GLUCOSE,POINT OF CARE 194 MG/DL (70-110)
[2022-12-25 16:18] VITALS: BP 105/66
[2022-12-25 16:33] LABS: GLUCOMETER DEV NAME(LOC) 3E.I 2; GLUCOSE,POINT OF CARE 137 MG/DL (70-110)
[2022-12-25 20:23] LABS: GLUCOMETER DEV NAME(LOC) 3E.I 2; GLUCOSE,POINT OF CARE 158 MG/DL (70-110)
[2022-12-25] MEDS: MELATONIN 5 MG TABLET PO SCH (20:39)
[2022-12-25] MEDS: OLANZapine 10 MG RAPDIS TABLET PO SCH (20:39)
[2022-12-25] MEDS: ZOLPIDEM TARTRATE 10 MG TABLET PO PRN (21:21)
[2022-12-26] MEDS: LORazepam 2 MG TABLET PO PRN ×3 (05:49→16:55)
[2022-12-26 06:08] LABS: GLUCOMETER DEV NAME(LOC) 3E.I 2; GLUCOSE,POINT OF CARE 154 MG/DL (70-110)
[2022-12-26] MEDS: INSULIN LISPRO 100 UNITS/ML SQ PRN ×4 (06:36→21:21)
[2022-12-26] MEDS: MetFORMIN HCL 500 MG TABLET PO SCH ×2 (06:38→16:55)
[2022-12-26] MEDS: LISINOPRIL 5 MG TABLET PO SCH (09:52)
[2022-12-26] MEDS: BUMETANIDE 1 MG TABLET PO SCH ×2 (09:52→16:56)
[2022-12-26] MEDS: OLANZapine 2.5 MG TABLET PO SCH ×2 (09:52→13:05)
[2022-12-26] MEDS: FLUoxetine HCL 20 MG CAPSULE PO SCH (09:52)
[2022-12-26] MEDS: APIXABAN 5 MG TABLET PO SCH ×2 (09:52→16:56)
[2022-12-26] MEDS: OMEGA-3/DHA/EPA/FISH OIL 1,000 MG CAPSULE PO SCH (09:53)
[2022-12-26] MEDS: GABAPENTIN 400 MG CAPSULE PO SCH ×3 (09:53→16:56)
[2022-12-26] MEDS: METOPROLOL SUCCINATE 25 MG ER TABLET PO SCH (09:53)
[2022-12-26] MEDS: OXYMETAZOLINE 0.05% NASAL SCH ×2 (09:54→16:57)
[2022-12-26] MEDS: OMEPRAZOLE 20 MG CAPSULE PO SCH (09:54)
[2022-12-26] MEDS: LamoTRIgine 25 MG TABLET PO SCH (09:55)
[2022-12-26] MEDS: MULTIVITAMINS WITH MINERALS, THERAPEUTIC TABLET PO SCH (09:55)
[2022-12-26 10:37] VITALS: BP 102/62
[2022-12-26 12:09] LABS: GLUCOMETER DEV NAME(LOC) 3E.I 2; GLUCOSE,POINT OF CARE 206 MG/DL (70-110)
[2022-12-26 16:17] VITALS: BP 104/72
[2022-12-26] MEDS: GABAPENTIN 100 MG CAPSULE PO SCH (16:59)
[2022-12-26] MEDS: OLANZapine 5 MG TABLET PO SCH (16:59)
[2022-12-26 17:18] LABS: GLUCOMETER DEV NAME(LOC) 3E.I 2; GLUCOSE,POINT OF CARE 247 MG/DL (70-110)
[2022-12-26 20:28] LABS: GLUCOMETER DEV NAME(LOC) 3E.I 2; GLUCOSE,POINT OF CARE 276 MG/DL (70-110)
[2022-12-26] MEDS: MELATONIN 5 MG TABLET PO SCH (21:00)
[2022-12-26] MEDS: PRAZOSIN HCL 1 MG CAPSULE PO SCH (21:00)
[2022-12-26] MEDS: ZOLPIDEM TARTRATE 10 MG TABLET PO PRN (21:16)
[2022-12-27 06:02] LABS: GLUCOMETER DEV NAME(LOC) 3E.I 2; GLUCOSE,POINT OF CARE 186 MG/DL (70-110)
[2022-12-27] MEDS: INSULIN LISPRO 100 UNITS/ML SQ PRN ×4 (06:35→21:25)
[2022-12-27] MEDS: MetFORMIN HCL 500 MG TABLET PO SCH ×2 (06:40→17:21)
[2022-12-27] MEDS: FLUoxetine HCL 20 MG CAPSULE PO SCH (08:42)
[2022-12-27] MEDS: GABAPENTIN 100 MG CAPSULE PO SCH ×3 (08:42→17:21)
[2022-12-27] MEDS: MULTIVITAMINS WITH MINERALS, THERAPEUTIC TABLET PO SCH (08:42)
[2022-12-27] MEDS: OMEGA-3/DHA/EPA/FISH OIL 1,000 MG CAPSULE PO SCH (08:42)
[2022-12-27] MEDS: OLANZapine 5 MG TABLET PO SCH ×3 (08:42→17:22)
[2022-12-27] MEDS: APIXABAN 5 MG TABLET PO SCH ×2 (08:43→17:21)
[2022-12-27] MEDS: OMEPRAZOLE 20 MG CAPSULE PO SCH (08:43)
[2022-12-27] MEDS: GABAPENTIN 400 MG CAPSULE PO SCH ×3 (08:43→17:20)
[2022-12-27] MEDS: LamoTRIgine 25 MG TABLET PO SCH (08:43)
[2022-12-27] MEDS: BUMETANIDE 1 MG TABLET PO SCH ×2 (08:50→17:21)
[2022-12-27] MEDS: OXYMETAZOLINE 0.05% NASAL SCH ×2 (08:50→17:23)
[2022-12-27 08:51] VITALS: BP 95/56
[2022-12-27] MEDS: METOPROLOL SUCCINATE 25 MG ER TABLET PO SCH (08:53)
[2022-12-27] MEDS: LISINOPRIL 5 MG TABLET PO SCH (08:53)
[2022-12-27 11:43] LABS: GLUCOMETER DEV NAME(LOC) 3E.I 2; GLUCOSE,POINT OF CARE 174 MG/DL (70-110)
[2022-12-27] MEDS: LORazepam 2 MG TABLET PO PRN (16:05)
[2022-12-27 16:17] VITALS: BP 115/79
[2022-12-27 17:27] LABS: GLUCOMETER DEV NAME(LOC) 3E.I 2; GLUCOSE,POINT OF CARE 268 MG/DL (70-110)
[2022-12-27] MEDS: PRAZOSIN HCL 1 MG CAPSULE PO SCH (20:49)
[2022-12-27] MEDS: MELATONIN 5 MG TABLET PO SCH (20:49)
[2022-12-27 20:58] LABS: GLUCOMETER DEV NAME(LOC) 3E.I 2; GLUCOSE,POINT OF CARE 258 MG/DL (70-110)
[2022-12-27] MEDS: ZOLPIDEM TARTRATE 10 MG TABLET PO PRN (21:20)
[2022-12-27] MEDS ORDERED: LORazepam 0.5 MG TABLET PO PRN (21:30)
[2022-12-28 06:08] LABS: GLUCOMETER DEV NAME(LOC) 3E.I 2; GLUCOSE,POINT OF CARE 155 MG/DL (70-110)
[2022-12-28] MEDS: MetFORMIN HCL 500 MG TABLET PO SCH ×2 (06:40→16:50)
[2022-12-28] MEDS: INSULIN LISPRO 100 UNITS/ML SQ PRN ×4 (06:47→21:25)
[2022-12-28] MEDS: OXYMETAZOLINE 0.05% NASAL SCH ×2 (08:30→16:50)
[2022-12-28] MEDS: METOPROLOL SUCCINATE 25 MG ER TABLET PO SCH (08:31)
[2022-12-28] MEDS: GABAPENTIN 100 MG CAPSULE PO SCH ×2 (08:31→12:41)
[2022-12-28] MEDS: OMEPRAZOLE 20 MG CAPSULE PO SCH (08:31)
[2022-12-28] MEDS: OLANZapine 5 MG TABLET PO SCH ×2 (08:31→12:42)
[2022-12-28] MEDS: APIXABAN 5 MG TABLET PO SCH ×2 (08:32→16:10)
[2022-12-28] MEDS: BUMETANIDE 1 MG TABLET PO SCH ×2 (08:32→16:10)
[2022-12-28] MEDS: LISINOPRIL 5 MG TABLET PO SCH (08:32)
[2022-12-28] MEDS: FLUoxetine HCL 20 MG CAPSULE PO SCH (08:34)
[2022-12-28] MEDS: MULTIVITAMINS WITH MINERALS, THERAPEUTIC TABLET PO SCH (08:35)
[2022-12-28] MEDS: LamoTRIgine 25 MG TABLET PO SCH (08:36)
[2022-12-28] MEDS: OMEGA-3/DHA/EPA/FISH OIL 1,000 MG CAPSULE PO SCH (08:36)
[2022-12-28] MEDS: GABAPENTIN 400 MG CAPSULE PO SCH ×3 (08:37→16:11)
[2022-12-28 09:32] VITALS: BP 119/71
[2022-12-28 15:38] LABS: GLUCOMETER DEV NAME(LOC) 3EX.2; GLUCOSE,POINT OF CARE 173 MG/DL (70-110)
[2022-12-28] MEDS: PREGABALIN 50 MG CAPSULE PO SCH (16:10)
[2022-12-28] MEDS: LURASIDONE HCL 40 MG TABLET PO SCH (16:50)
[2022-12-28 16:53] LABS: GLUCOMETER DEV NAME(LOC) 3EX.2; GLUCOSE,POINT OF CARE 235 MG/DL (70-110)
[2022-12-28 17:27] VITALS: BP 114/77
[2022-12-28 20:17] LABS: GLUCOMETER DEV NAME(LOC) 3EX.2; GLUCOSE,POINT OF CARE 331 MG/DL (70-110)
[2022-12-28] MEDS: MELATONIN 5 MG TABLET PO SCH (20:56)
[2022-12-28] MEDS: PRAZOSIN HCL 1 MG CAPSULE PO SCH (20:56)
[2022-12-28] MEDS: ZOLPIDEM TARTRATE 10 MG TABLET PO PRN (21:39)
[2022-12-29 05:47] LABS: GLUCOMETER DEV NAME(LOC) 3EX.2; GLUCOSE,POINT OF CARE 154 MG/DL (70-110)
[2022-12-29] MEDS: MetFORMIN HCL 500 MG TABLET PO SCH ×2 (06:39→16:48)
[2022-12-29] MEDS: INSULIN LISPRO 100 UNITS/ML SQ PRN ×4 (06:40→21:20)
[2022-12-29] MEDS: GABAPENTIN 400 MG CAPSULE PO SCH ×3 (08:23→16:48)
[2022-12-29] MEDS: OMEGA-3/DHA/EPA/FISH OIL 1,000 MG CAPSULE PO SCH (08:23)
[2022-12-29] MEDS: OXYMETAZOLINE 0.05% NASAL SCH ×2 (08:24→16:46)
[2022-12-29] MEDS: OMEPRAZOLE 20 MG CAPSULE PO SCH (08:24)
[2022-12-29] MEDS: PREGABALIN 50 MG CAPSULE PO SCH ×3 (08:24→16:48)
[2022-12-29] MEDS: LamoTRIgine 25 MG TABLET PO SCH (08:24)
[2022-12-29] MEDS: BUMETANIDE 1 MG TABLET PO SCH ×2 (08:24→16:46)
[2022-12-29] MEDS: LISINOPRIL 5 MG TABLET PO SCH (08:24)
[2022-12-29] MEDS: MULTIVITAMINS WITH MINERALS, THERAPEUTIC TABLET PO SCH (08:24)
[2022-12-29] MEDS: METOPROLOL SUCCINATE 25 MG ER TABLET PO SCH (08:24)
[2022-12-29] MEDS: APIXABAN 5 MG TABLET PO SCH ×2 (08:24→16:47)
[2022-12-29] MEDS ORDERED: PARoxetine HCL 20 MG TABLET PO SCH (09:00)
[2022-12-29] MEDS ORDERED: FLUoxetine HCL 20 MG CAPSULE PO SCH (09:00)
[2022-12-29 09:12] VITALS: BP 115/70
[2022-12-29 11:48] LABS: GLUCOMETER DEV NAME(LOC) 3EX.2; GLUCOSE,POINT OF CARE 216 MG/DL (70-110)
[2022-12-29] MEDS: ACETAMINOPHEN 325 MG TABLET PO PRN (15:33)
[2022-12-29 16:18] LABS: GLUCOMETER DEV NAME(LOC) 3EX.2; GLUCOSE,POINT OF CARE 215 MG/DL (70-110)
[2022-12-29 16:29] VITALS: BP 99/65
[2022-12-29] MEDS: LURASIDONE HCL 40 MG TABLET PO SCH (16:46)
[2022-12-29] MEDS ORDERED: GABAPENTIN 300 MG CAPSULE PO PRN (18:00)
[2022-12-29] MEDS ORDERED: ESZOPICLONE 3 MG TABLET PO PRN (18:00)
[2022-12-29] MEDS: PRAZOSIN HCL 1 MG CAPSULE PO SCH (20:07)
[2022-12-29] MEDS: MELATONIN 5 MG TABLET PO SCH (20:07)
[2022-12-29 20:47] LABS: GLUCOMETER DEV NAME(LOC) 3EX.2; GLUCOSE,POINT OF CARE 206 MG/DL (70-110)
[2022-12-29] MEDS ORDERED: TraZODone HCL 100 MG TABLET PO SCH (21:00)
[2022-12-30 05:53] LABS: GLUCOMETER DEV NAME(LOC) 3EX.2; GLUCOSE,POINT OF CARE 177 MG/DL (70-110)
[2022-12-30] MEDS: MetFORMIN HCL 500 MG TABLET PO SCH ×2 (06:59→17:26)
[2022-12-30] MEDS: INSULIN LISPRO 100 UNITS/ML SQ PRN ×4 (07:00→21:04)
[2022-12-30] MEDS: OXYMETAZOLINE 0.05% NASAL SCH ×2 (09:03→17:27)
[2022-12-30] MEDS: OMEGA-3/DHA/EPA/FISH OIL 1,000 MG CAPSULE PO SCH (09:04)
[2022-12-30] MEDS: MULTIVITAMINS WITH MINERALS, THERAPEUTIC TABLET PO SCH (09:04)
[2022-12-30] MEDS: PARoxetine HCL 20 MG TABLET PO SCH (09:04)
[2022-12-30] MEDS: PREGABALIN 50 MG CAPSULE PO SCH ×3 (09:05→17:26)
[2022-12-30] MEDS: METOPROLOL SUCCINATE 25 MG ER TABLET PO SCH (09:05)
[2022-12-30] MEDS: GABAPENTIN 400 MG CAPSULE PO SCH ×3 (09:05→17:26)
[2022-12-30] MEDS: FLUoxetine HCL 20 MG CAPSULE PO SCH (09:05)
[2022-12-30] MEDS: OMEPRAZOLE 20 MG CAPSULE PO SCH (09:05)
[2022-12-30 09:06] VITALS: BP 110/61
[2022-12-30] MEDS: LamoTRIgine 25 MG TABLET PO SCH (09:06)
[2022-12-30] MEDS: LISINOPRIL 5 MG TABLET PO SCH (09:07)
[2022-12-30] MEDS: BUMETANIDE 1 MG TABLET PO SCH ×2 (09:08→17:27)
[2022-12-30] MEDS: APIXABAN 5 MG TABLET PO SCH ×2 (09:08→17:26)
[2022-12-30 11:21] LABS: GLUCOMETER DEV NAME(LOC) 3EX.2; GLUCOSE,POINT OF CARE 254 MG/DL (70-110)
[2022-12-30 15:56] VITALS: BP 105/67
[2022-12-30] MEDS: ACETAMINOPHEN 325 MG TABLET PO PRN (15:56)
[2022-12-30 16:01] LABS: GLUCOMETER DEV NAME(LOC) 3EX.2; GLUCOSE,POINT OF CARE 184 MG/DL (70-110)
[2022-12-30 16:56] VITALS: BP 104/64
[2022-12-30] MEDS: LURASIDONE HCL 40 MG TABLET PO SCH (17:26)
[2022-12-30 17:40] VITALS: BP 105/67
[2022-12-30] MEDS ORDERED: TraZODone HCL 100 MG TABLET PO ONE (20:00)
[2022-12-30] MEDS: PRAZOSIN HCL 1 MG CAPSULE PO SCH (20:15)
[2022-12-30] MEDS: MELATONIN 5 MG TABLET PO SCH (20:15)
[2022-12-30 20:40] LABS: GLUCOMETER DEV NAME(LOC) 3EX.2; GLUCOSE,POINT OF CARE 287 MG/DL (70-110)
[2022-12-31 05:46] LABS: GLUCOMETER DEV NAME(LOC) 3EX.2; GLUCOSE,POINT OF CARE 181 MG/DL (70-110)
[2022-12-31] MEDS: MetFORMIN HCL 500 MG TABLET PO SCH ×2 (06:55→18:18)
[2022-12-31] MEDS: INSULIN LISPRO 100 UNITS/ML SQ PRN ×4 (06:56→21:24)
[2022-12-31 08:00] VITALS: BP 102/53
[2022-12-31] MEDS: OXYMETAZOLINE 0.05% NASAL SCH ×2 (11:12→18:18)
[2022-12-31] MEDS: GABAPENTIN 400 MG CAPSULE PO SCH ×3 (11:12→18:19)
[2022-12-31] MEDS: OMEGA-3/DHA/EPA/FISH OIL 1,000 MG CAPSULE PO SCH (11:12)
[2022-12-31] MEDS: APIXABAN 5 MG TABLET PO SCH ×2 (11:13→18:18)
[2022-12-31] MEDS: METOPROLOL SUCCINATE 25 MG ER TABLET PO SCH (11:13)
[2022-12-31] MEDS: MULTIVITAMINS WITH MINERALS, THERAPEUTIC TABLET PO SCH (11:13)
[2022-12-31] MEDS: LamoTRIgine 25 MG TABLET PO SCH (11:13)
[2022-12-31] MEDS: OMEPRAZOLE 20 MG CAPSULE PO SCH (11:13)
[2022-12-31] MEDS: FLUoxetine HCL 20 MG CAPSULE PO SCH (11:13)
[2022-12-31] MEDS: BUMETANIDE 1 MG TABLET PO SCH ×2 (11:13→18:19)
[2022-12-31] MEDS: PARoxetine HCL 20 MG TABLET PO SCH (11:14)
[2022-12-31] MEDS: LISINOPRIL 5 MG TABLET PO SCH (11:15)
[2022-12-31] MEDS: PREGABALIN 50 MG CAPSULE PO SCH ×3 (11:17→18:19)
[2022-12-31 11:41] LABS: GLUCOMETER DEV NAME(LOC) 3EX.2; GLUCOSE,POINT OF CARE 156 MG/DL (70-110)
[2022-12-31 13:02] VITALS: BP 110/66
[2022-12-31] MEDS: ACETAMINOPHEN 325 MG TABLET PO PRN (13:02)
[2022-12-31 16:00] VITALS: BP 99/69
[2022-12-31 17:41] LABS: GLUCOMETER DEV NAME(LOC) 3EX.2; GLUCOSE,POINT OF CARE 232 MG/DL (70-110)
[2022-12-31 20:46] LABS: GLUCOMETER DEV NAME(LOC) 3EX.2; GLUCOSE,POINT OF CARE 219 MG/DL (70-110)
[2022-12-31] MEDS ORDERED: TraZODone HCL 100 MG TABLET PO SCH (21:00)
[2022-12-31] MEDS: PRAZOSIN HCL 1 MG CAPSULE PO SCH (21:19)
[2022-12-31] MEDS: TraZODone HCL 150 MG TABLET PO SCH (21:19)
[2022-12-31] MEDS: DiphenhydrAMINE HCL 25 MG CAPSULE PO SCH (21:19)
[2022-12-31] MEDS: MELATONIN 5 MG TABLET PO SCH (21:20)
[2023-01-01 06:06] LABS: GLUCOMETER DEV NAME(LOC) 3EX.2; GLUCOSE,POINT OF CARE 188 MG/DL (70-110)
[2023-01-01] MEDS: MetFORMIN HCL 500 MG TABLET PO SCH ×2 (06:45→16:34)
[2023-01-01] MEDS: INSULIN LISPRO 100 UNITS/ML SQ PRN ×4 (06:51→21:30)
[2023-01-01 07:20] LABS: COVID AG,FIA SOURCE NASAL SWAB
[2023-01-01 08:00] VITALS: BP 98/57
[2023-01-01] MEDS: MULTIVITAMINS WITH MINERALS, THERAPEUTIC TABLET PO SCH (09:50)
[2023-01-01] MEDS: APIXABAN 5 MG TABLET PO SCH ×2 (09:51→16:34)
[2023-01-01] MEDS: BUMETANIDE 1 MG TABLET PO SCH ×2 (09:51→16:34)
[2023-01-01] MEDS: FLUoxetine HCL 20 MG CAPSULE PO SCH (09:51)
[2023-01-01] MEDS: LISINOPRIL 5 MG TABLET PO SCH (09:51)
[2023-01-01] MEDS: METOPROLOL SUCCINATE 25 MG ER TABLET PO SCH (09:51)
[2023-01-01] MEDS: GABAPENTIN 400 MG CAPSULE PO SCH ×3 (09:51→16:34)
[2023-01-01] MEDS: OMEGA-3/DHA/EPA/FISH OIL 1,000 MG CAPSULE PO SCH (09:51)
[2023-01-01] MEDS: LamoTRIgine 25 MG TABLET PO SCH (09:51)
[2023-01-01] MEDS: OXYMETAZOLINE 0.05% NASAL SCH ×2 (09:52→16:33)
[2023-01-01] MEDS: OMEPRAZOLE 20 MG CAPSULE PO SCH (09:52)
[2023-01-01] MEDS: PREGABALIN 50 MG CAPSULE PO SCH ×3 (09:52→16:34)
[2023-01-01 11:31] LABS: GLUCOMETER DEV NAME(LOC) 3EX.2; GLUCOSE,POINT OF CARE 191 MG/DL (70-110)
[2023-01-01 16:06] LABS: GLUCOMETER DEV NAME(LOC) 3EX.2; GLUCOSE,POINT OF CARE 159 MG/DL (70-110)
[2023-01-01 16:10] VITALS: BP 97/57
[2023-01-01 16:56] VITALS: BP 111/70
[2023-01-01] MEDS: ACETAMINOPHEN 325 MG TABLET PO PRN (16:56)
[2023-01-01] MEDS ORDERED: LURASIDONE HCL 20 MG TABLET PO SCH (17:30)
[2023-01-01] MEDS: PRAZOSIN HCL 1 MG CAPSULE PO SCH (20:26)
[2023-01-01] MEDS: TraZODone HCL 150 MG TABLET PO SCH (20:27)
[2023-01-01] MEDS: MELATONIN 5 MG TABLET PO SCH (20:27)
[2023-01-01] MEDS: DiphenhydrAMINE HCL 25 MG CAPSULE PO SCH (20:27)
[2023-01-01 20:31] LABS: GLUCOMETER DEV NAME(LOC) 3EX.2; GLUCOSE,POINT OF CARE 151 MG/DL (70-110)
[2023-01-02 06:01] LABS: GLUCOMETER DEV NAME(LOC) 3EX.2; GLUCOSE,POINT OF CARE 163 MG/DL (70-110)
[2023-01-02] MEDS: MetFORMIN HCL 500 MG TABLET PO SCH ×2 (06:42→17:46)
[2023-01-02] MEDS: INSULIN LISPRO 100 UNITS/ML SQ PRN ×2 (07:03→20:48)
[2023-01-02 08:02] VITALS: BP 94/57
[2023-01-02] MEDS: LamoTRIgine 25 MG TABLET PO SCH (08:26)
[2023-01-02] MEDS: GABAPENTIN 400 MG CAPSULE PO SCH ×3 (08:26→17:44)
[2023-01-02] MEDS: OXYMETAZOLINE 0.05% NASAL SCH ×2 (08:26→17:44)
[2023-01-02] MEDS: BUMETANIDE 1 MG TABLET PO SCH ×2 (08:26→17:44)
[2023-01-02] MEDS: APIXABAN 5 MG TABLET PO SCH ×2 (08:26→17:44)
[2023-01-02] MEDS: OMEGA-3/DHA/EPA/FISH OIL 1,000 MG CAPSULE PO SCH (08:26)
[2023-01-02] MEDS: FLUoxetine HCL 20 MG CAPSULE PO SCH (08:26)
[2023-01-02] MEDS: PREGABALIN 50 MG CAPSULE PO SCH ×3 (08:31→17:46)
[2023-01-02] MEDS: MULTIVITAMINS WITH MINERALS, THERAPEUTIC TABLET PO SCH (08:57)
[2023-01-02] MEDS: METOPROLOL SUCCINATE 25 MG ER TABLET PO SCH (08:58)
[2023-01-02] MEDS: OMEPRAZOLE 20 MG CAPSULE PO SCH (08:58)
[2023-01-02] MEDS: LISINOPRIL 5 MG TABLET PO SCH (09:00)
[2023-01-02 11:21] LABS: GLUCOMETER DEV NAME(LOC) 3EX.2; GLUCOSE,POINT OF CARE 128 MG/DL (70-110)
[2023-01-02 16:10] VITALS: BP 105/65
[2023-01-02 16:41] LABS: GLUCOMETER DEV NAME(LOC) 3EX.2; GLUCOSE,POINT OF CARE 132 MG/DL (70-110)
[2023-01-02 20:36] LABS: GLUCOMETER DEV NAME(LOC) 3EX.2; GLUCOSE,POINT OF CARE 187 MG/DL (70-110)
[2023-01-02] MEDS: MELATONIN 5 MG TABLET PO SCH (20:38)
[2023-01-02] MEDS: DiphenhydrAMINE HCL 25 MG CAPSULE PO SCH (20:38)
[2023-01-02] MEDS: TraZODone HCL 150 MG TABLET PO SCH (20:38)
[2023-01-02] MEDS: PRAZOSIN HCL 1 MG CAPSULE PO SCH (20:39)
[2023-01-02 21:17] VITALS: BP 112/67
[2023-01-03 05:51] LABS: GLUCOMETER DEV NAME(LOC) 3EX.2; GLUCOSE,POINT OF CARE 150 MG/DL (70-110)
[2023-01-03 06:37] VITALS: BP 98/60
[2023-01-03] MEDS: ACETAMINOPHEN 325 MG TABLET PO PRN (06:42)
[2023-01-03] MEDS: MetFORMIN HCL 500 MG TABLET PO SCH ×2 (06:43→16:45)
[2023-01-03] MEDS: INSULIN LISPRO 100 UNITS/ML SQ PRN ×2 (06:44→21:20)
[2023-01-03] MEDS: OMEPRAZOLE 20 MG CAPSULE PO SCH (08:54)
[2023-01-03] MEDS: OMEGA-3/DHA/EPA/FISH OIL 1,000 MG CAPSULE PO SCH (08:54)
[2023-01-03] MEDS: FLUoxetine HCL 20 MG CAPSULE PO SCH (08:54)
[2023-01-03] MEDS: GABAPENTIN 400 MG CAPSULE PO SCH ×3 (08:54→16:45)
[2023-01-03] MEDS: MULTIVITAMINS WITH MINERALS, THERAPEUTIC TABLET PO SCH (08:55)
[2023-01-03] MEDS: PREGABALIN 50 MG CAPSULE PO SCH ×3 (08:55→16:45)
[2023-01-03] MEDS: LISINOPRIL 5 MG TABLET PO SCH (08:55)
[2023-01-03] MEDS: METOPROLOL SUCCINATE 25 MG ER TABLET PO SCH (08:55)
[2023-01-03] MEDS: APIXABAN 5 MG TABLET PO SCH ×2 (08:55→16:46)
[2023-01-03] MEDS: BUMETANIDE 1 MG TABLET PO SCH ×2 (08:55→16:45)
[2023-01-03] MEDS: LamoTRIgine 25 MG TABLET PO SCH (08:57)
[2023-01-03] MEDS: OXYMETAZOLINE 0.05% NASAL SCH ×2 (09:04→16:46)
[2023-01-03 10:23] VITALS: BP 110/61
[2023-01-03 11:56] LABS: GLUCOMETER DEV NAME(LOC) 3EX.2; GLUCOSE,POINT OF CARE 131 MG/DL (70-110)
[2023-01-03] MEDS: LURASIDONE HCL 20 MG TABLET PO PRN ×2 (12:17→17:48)
[2023-01-03 16:18] VITALS: BP 107/65
[2023-01-03 17:26] LABS: GLUCOMETER DEV NAME(LOC) 3EX.2; GLUCOSE,POINT OF CARE 107 MG/DL (70-110)
[2023-01-03] MEDS: MELATONIN 5 MG TABLET PO SCH (20:49)
[2023-01-03] MEDS: DiphenhydrAMINE HCL 25 MG CAPSULE PO SCH (20:49)
[2023-01-03] MEDS: TraZODone HCL 150 MG TABLET PO SCH (20:49)
[2023-01-03] MEDS: PRAZOSIN HCL 1 MG CAPSULE PO SCH (20:49)
[2023-01-03 20:51] LABS: GLUCOMETER DEV NAME(LOC) 3EX.2; GLUCOSE,POINT OF CARE 175 MG/DL (70-110)
[2023-01-03 21:52] VITALS: BP 100/63
[2023-01-04 06:11] LABS: GLUCOMETER DEV NAME(LOC) 3EX.2; GLUCOSE,POINT OF CARE 147 MG/DL (70-110)
[2023-01-04] MEDS: INSULIN LISPRO 100 UNITS/ML SQ PRN ×3 (06:44→21:11)
[2023-01-04] MEDS: MetFORMIN HCL 500 MG TABLET PO SCH ×2 (07:18→16:43)
[2023-01-04 08:00] VITALS: BP 99/64
[2023-01-04] MEDS: METOPROLOL SUCCINATE 25 MG ER TABLET PO SCH (09:00)
[2023-01-04] MEDS: LISINOPRIL 5 MG TABLET PO SCH (09:00)
[2023-01-04] MEDS: OXYMETAZOLINE 0.05% NASAL SCH ×2 (09:00→16:34)
[2023-01-04] MEDS: OMEGA-3/DHA/EPA/FISH OIL 1,000 MG CAPSULE PO SCH (09:01)
[2023-01-04] MEDS: LamoTRIgine 25 MG TABLET PO SCH (09:01)
[2023-01-04] MEDS: GABAPENTIN 300 MG CAPSULE PO SCH ×2 (09:01→12:58)
[2023-01-04] MEDS: OMEPRAZOLE 20 MG CAPSULE PO SCH (09:01)
[2023-01-04] MEDS: MULTIVITAMINS WITH MINERALS, THERAPEUTIC TABLET PO SCH (09:01)
[2023-01-04] MEDS: APIXABAN 5 MG TABLET PO SCH ×2 (09:02→16:34)
[2023-01-04] MEDS: BUMETANIDE 1 MG TABLET PO SCH ×2 (09:02→16:34)
[2023-01-04] MEDS: FLUoxetine HCL 20 MG CAPSULE PO SCH (09:03)
[2023-01-04 12:01] LABS: GLUCOMETER DEV NAME(LOC) 3EX.2; GLUCOSE,POINT OF CARE 133 MG/DL (70-110)
[2023-01-04] MEDS: LURASIDONE HCL 20 MG TABLET PO PRN (13:11)
[2023-01-04] MEDS: GABAPENTIN 400 MG CAPSULE PO SCH (16:43)
[2023-01-04 16:46] VITALS: BP 97/67
[2023-01-04 17:21] LABS: GLUCOMETER DEV NAME(LOC) 3EX.2; GLUCOSE,POINT OF CARE 153 MG/DL (70-110)
[2023-01-04] MEDS: DiphenhydrAMINE HCL 25 MG CAPSULE PO SCH (21:10)
[2023-01-04 21:14] VITALS: BP 123/62
[2023-01-04] MEDS: PRAZOSIN HCL 1 MG CAPSULE PO SCH (21:18)
[2023-01-04] MEDS: TraZODone HCL 150 MG TABLET PO SCH (21:18)
[2023-01-04] MEDS: MELATONIN 5 MG TABLET PO SCH (21:18)
[2023-01-04 21:31] LABS: GLUCOMETER DEV NAME(LOC) 3EX.2; GLUCOSE,POINT OF CARE 187 MG/DL (70-110)
[2023-01-05 06:21] LABS: GLUCOMETER DEV NAME(LOC) 3EX.2; GLUCOSE,POINT OF CARE 191 MG/DL (70-110)
[2023-01-05] MEDS: INSULIN LISPRO 100 UNITS/ML SQ PRN ×3 (06:35→21:09)
[2023-01-05] MEDS: MetFORMIN HCL 500 MG TABLET PO SCH ×2 (06:42→16:14)
[2023-01-05] MEDS: OXYMETAZOLINE 0.05% NASAL SCH ×2 (08:55→16:13)
[2023-01-05] MEDS: APIXABAN 5 MG TABLET PO SCH ×2 (08:56→16:14)
[2023-01-05] MEDS: OMEGA-3/DHA/EPA/FISH OIL 1,000 MG CAPSULE PO SCH (08:56)
[2023-01-05] MEDS: GABAPENTIN 400 MG CAPSULE PO SCH ×3 (08:56→16:13)
[2023-01-05] MEDS: OMEPRAZOLE 20 MG CAPSULE PO SCH (08:56)
[2023-01-05] MEDS: FLUoxetine HCL 20 MG CAPSULE PO SCH (08:57)
[2023-01-05] MEDS: BUMETANIDE 1 MG TABLET PO SCH ×2 (08:57→16:14)
[2023-01-05] MEDS: LamoTRIgine 25 MG TABLET PO SCH (08:57)
[2023-01-05] MEDS: MULTIVITAMINS WITH MINERALS, THERAPEUTIC TABLET PO SCH (08:57)
[2023-01-05] MEDS: LISINOPRIL 5 MG TABLET PO SCH (08:58)
[2023-01-05] MEDS: METOPROLOL SUCCINATE 25 MG ER TABLET PO SCH (08:58)
[2023-01-05 09:01] VITALS: BP 108/64
[2023-01-05 11:56] LABS: GLUCOMETER DEV NAME(LOC) 3EX.2; GLUCOSE,POINT OF CARE 128 MG/DL (70-110)
[2023-01-05 16:07] VITALS: BP 96/69
[2023-01-05] MEDS ORDERED: QUEtiapine FUMARATE 25 MG TABLET PO PRN (16:30)
[2023-01-05 16:51] VITALS: BP 112/68
[2023-01-05] MEDS: ACETAMINOPHEN 325 MG TABLET PO PRN (16:51)
[2023-01-05 17:12] LABS: GLUCOMETER DEV NAME(LOC) 3EX.2; GLUCOSE,POINT OF CARE 190 MG/DL (70-110)
[2023-01-05] MEDS: QUEtiapine FUMARATE 25 MG TABLET PO SCH (17:46)
[2023-01-05 20:51] LABS: GLUCOMETER DEV NAME(LOC) 3EX.2; GLUCOSE,POINT OF CARE 147 MG/DL (70-110)
[2023-01-05] MEDS ORDERED: QUEtiapine FUMARATE 25 MG TABLET PO SCH (21:00)
[2023-01-05] MEDS: MELATONIN 5 MG TABLET PO SCH (21:28)
[2023-01-05] MEDS: PRAZOSIN HCL 1 MG CAPSULE PO SCH (21:28)
[2023-01-05] MEDS: DiphenhydrAMINE HCL 25 MG CAPSULE PO SCH (21:28)
[2023-01-05] MEDS: TraZODone HCL 150 MG TABLET PO SCH (21:28)
[2023-01-06 06:06] LABS: GLUCOMETER DEV NAME(LOC) 3EX.2; GLUCOSE,POINT OF CARE 197 MG/DL (70-110)
[2023-01-06] MEDS: INSULIN LISPRO 100 UNITS/ML SQ PRN ×4 (06:35→20:49)
[2023-01-06] MEDS: MetFORMIN HCL 500 MG TABLET PO SCH ×2 (06:42→16:54)
[2023-01-06 08:42] VITALS: BP 90/68
[2023-01-06] MEDS: LISINOPRIL 5 MG TABLET PO SCH (09:00)
[2023-01-06 09:50] VITALS: BP 113/75
[2023-01-06] MEDS: OXYMETAZOLINE 0.05% NASAL SCH ×2 (09:54→16:36)
[2023-01-06] MEDS: BUMETANIDE 1 MG TABLET PO SCH ×2 (09:56→16:36)
[2023-01-06] MEDS: APIXABAN 5 MG TABLET PO SCH ×2 (09:56→16:36)
[2023-01-06] MEDS: LamoTRIgine 25 MG TABLET PO SCH (10:03)
[2023-01-06] MEDS: OMEPRAZOLE 20 MG CAPSULE PO SCH (10:03)
[2023-01-06] MEDS: OMEGA-3/DHA/EPA/FISH OIL 1,000 MG CAPSULE PO SCH (10:03)
[2023-01-06] MEDS: METOPROLOL SUCCINATE 25 MG ER TABLET PO SCH (10:03)
[2023-01-06] MEDS: MULTIVITAMINS WITH MINERALS, THERAPEUTIC TABLET PO SCH (10:03)
[2023-01-06] MEDS: GABAPENTIN 400 MG CAPSULE PO SCH ×3 (10:03→16:38)
[2023-01-06] MEDS: QUEtiapine FUMARATE 25 MG TABLET PO SCH ×3 (10:04→16:38)
[2023-01-06] MEDS: PARoxetine HCL 20 MG TABLET PO SCH (10:04)
[2023-01-06 11:21] LABS: GLUCOMETER DEV NAME(LOC) 3EX.2; GLUCOSE,POINT OF CARE 185 MG/DL (70-110)
[2023-01-06 16:13] VITALS: BP 104/53
[2023-01-06 16:51] LABS: GLUCOMETER DEV NAME(LOC) 3EX.2; GLUCOSE,POINT OF CARE 168 MG/DL (70-110)
[2023-01-06 20:26] LABS: GLUCOMETER DEV NAME(LOC) 3EX.2; GLUCOSE,POINT OF CARE 218 MG/DL (70-110)
[2023-01-06] MEDS: TraZODone HCL 150 MG TABLET PO SCH (20:36)
[2023-01-06] MEDS: DiphenhydrAMINE HCL 25 MG CAPSULE PO SCH (20:36)
[2023-01-06] MEDS: MELATONIN 5 MG TABLET PO SCH (20:36)
[2023-01-06] MEDS: PRAZOSIN HCL 1 MG CAPSULE PO SCH (20:37)
[2023-01-06] MEDS: QUEtiapine FUMARATE 200 MG TABLET PO SCH (20:38)
[2023-01-07 05:31] LABS: GLUCOMETER DEV NAME(LOC) 3EX.2; GLUCOSE,POINT OF CARE 171 MG/DL (70-110)
[2023-01-07] MEDS: MetFORMIN HCL 500 MG TABLET PO SCH ×2 (06:40→16:11)
[2023-01-07] MEDS: INSULIN LISPRO 100 UNITS/ML SQ PRN ×3 (06:41→21:04)
[2023-01-07 08:00] VITALS: BP 96/60
[2023-01-07 08:30] VITALS: BP 96/60
[2023-01-07] MEDS: OXYMETAZOLINE 0.05% NASAL SCH ×2 (08:35→16:10)
[2023-01-07] MEDS: GABAPENTIN 400 MG CAPSULE PO SCH ×3 (08:36→16:10)
[2023-01-07] MEDS: PARoxetine HCL 20 MG TABLET PO SCH (08:36)
[2023-01-07] MEDS: LISINOPRIL 5 MG TABLET PO SCH (08:36)
[2023-01-07] MEDS: METOPROLOL SUCCINATE 25 MG ER TABLET PO SCH (08:37)
[2023-01-07] MEDS: OMEGA-3/DHA/EPA/FISH OIL 1,000 MG CAPSULE PO SCH (08:38)
[2023-01-07] MEDS: BUMETANIDE 1 MG TABLET PO SCH ×2 (08:38→16:11)
[2023-01-07] MEDS: MULTIVITAMINS WITH MINERALS, THERAPEUTIC TABLET PO SCH (08:38)
[2023-01-07] MEDS: QUEtiapine FUMARATE 25 MG TABLET PO SCH ×3 (08:39→16:11)
[2023-01-07] MEDS: LamoTRIgine 25 MG TABLET PO SCH (08:39)
[2023-01-07] MEDS: APIXABAN 5 MG TABLET PO SCH ×2 (08:39→16:11)
[2023-01-07] MEDS: OMEPRAZOLE 20 MG CAPSULE PO SCH (08:39)
[2023-01-07 11:21] LABS: GLUCOMETER DEV NAME(LOC) 3EX.2; GLUCOSE,POINT OF CARE 175 MG/DL (70-110)
[2023-01-07 16:58] VITALS: BP 123/68
[2023-01-07 17:01] LABS: GLUCOMETER DEV NAME(LOC) 3EX.2; GLUCOSE,POINT OF CARE 116 MG/DL (70-110)
[2023-01-07 21:02] LABS: GLUCOMETER DEV NAME(LOC) 3EX.2; GLUCOSE,POINT OF CARE 166 MG/DL (70-110)
[2023-01-07] MEDS: DiphenhydrAMINE HCL 25 MG CAPSULE PO SCH (21:03)
[2023-01-07] MEDS: TraZODone HCL 150 MG TABLET PO SCH (21:04)
[2023-01-07] MEDS: MELATONIN 5 MG TABLET PO SCH (21:04)
[2023-01-07] MEDS: QUEtiapine FUMARATE 200 MG TABLET PO SCH (21:04)
[2023-01-07] MEDS: PRAZOSIN HCL 1 MG CAPSULE PO SCH (21:04)
[2023-01-07] MEDS: GuaiFENesin/D-METHORPHAN [SUGAR-FREE] 200-20MG/10 ML SYRUP UDCUP PO PRN (21:39)
[2023-01-08 06:21] LABS: GLUCOMETER DEV NAME(LOC) 3EX.2; GLUCOSE,POINT OF CARE 137 MG/DL (70-110)
[2023-01-08] MEDS: MetFORMIN HCL 500 MG TABLET PO SCH ×2 (06:46→16:28)
[2023-01-08 07:30] LABS: COVID AG,FIA SOURCE NASAL SWAB
[2023-01-08 08:15] VITALS: BP 102/60
[2023-01-08] MEDS: MULTIVITAMINS WITH MINERALS, THERAPEUTIC TABLET PO SCH (08:18)
[2023-01-08] MEDS: LamoTRIgine 25 MG TABLET PO SCH (08:18)
[2023-01-08] MEDS: PARoxetine HCL 20 MG TABLET PO SCH (08:18)
[2023-01-08] MEDS: OMEPRAZOLE 20 MG CAPSULE PO SCH (08:18)
[2023-01-08] MEDS: GABAPENTIN 400 MG CAPSULE PO SCH ×3 (08:18→16:26)
[2023-01-08] MEDS: BUMETANIDE 1 MG TABLET PO SCH ×2 (08:19→16:28)
[2023-01-08] MEDS: APIXABAN 5 MG TABLET PO SCH ×2 (08:19→16:27)
[2023-01-08] MEDS: OXYMETAZOLINE 0.05% NASAL SCH ×2 (08:19→16:28)
[2023-01-08] MEDS: QUEtiapine FUMARATE 25 MG TABLET PO SCH ×3 (08:20→16:26)
[2023-01-08] MEDS: OMEGA-3/DHA/EPA/FISH OIL 1,000 MG CAPSULE PO SCH (08:20)
[2023-01-08] MEDS: LISINOPRIL 5 MG TABLET PO SCH (09:00)
[2023-01-08] MEDS: METOPROLOL SUCCINATE 25 MG ER TABLET PO SCH (09:00)
[2023-01-08] MEDS: GuaiFENesin/D-METHORPHAN [SUGAR-FREE] 200-20MG/10 ML SYRUP UDCUP PO PRN ×2 (11:33→20:54)
[2023-01-08 12:20] LABS: GLUCOMETER DEV NAME(LOC) 3EX.2; GLUCOSE,POINT OF CARE 104 MG/DL (70-110)
[2023-01-08 16:36] LABS: GLUCOMETER DEV NAME(LOC) 3EX.2; GLUCOSE,POINT OF CARE 94 MG/DL (70-110)
[2023-01-08 17:18] VITALS: BP 116/76
[2023-01-08] MEDS ORDERED: OXYMETAZOLINE 0.05% NASAL PRN (18:00)
[2023-01-08 20:36] LABS: GLUCOMETER DEV NAME(LOC) 3EX.2; GLUCOSE,POINT OF CARE 151 MG/DL (70-110)
[2023-01-08 20:53] VITALS: BP 121/81
[2023-01-08] MEDS: ACETAMINOPHEN 325 MG TABLET PO PRN (20:55)
[2023-01-08] MEDS: QUEtiapine FUMARATE 200 MG TABLET PO SCH (20:56)
[2023-01-08] MEDS: DiphenhydrAMINE HCL 25 MG CAPSULE PO SCH (20:56)
[2023-01-08] MEDS: TraZODone HCL 150 MG TABLET PO SCH (20:56)
[2023-01-08] MEDS: MELATONIN 5 MG TABLET PO SCH (20:56)
[2023-01-08] MEDS: PRAZOSIN HCL 1 MG CAPSULE PO SCH (20:56)
[2023-01-08] MEDS: INSULIN LISPRO 100 UNITS/ML SQ PRN (21:08)
[2023-01-09] MEDS: MetFORMIN HCL 500 MG TABLET PO SCH ×2 (06:34→17:29)
[2023-01-09] MEDS: INSULIN LISPRO 100 UNITS/ML SQ PRN ×2 (06:49→21:03)
[2023-01-09 07:06] LABS: GLUCOMETER DEV NAME(LOC) 3E.C; GLUCOSE,POINT OF CARE 143 MG/DL (70-110)
[2023-01-09] MEDS: GABAPENTIN 400 MG CAPSULE PO SCH ×3 (09:06→17:29)
[2023-01-09] MEDS: OMEPRAZOLE 20 MG CAPSULE PO SCH (09:06)
[2023-01-09] MEDS: PARoxetine HCL 20 MG TABLET PO SCH (09:06)
[2023-01-09] MEDS: MULTIVITAMINS WITH MINERALS, THERAPEUTIC TABLET PO SCH (09:06)
[2023-01-09] MEDS: OMEGA-3/DHA/EPA/FISH OIL 1,000 MG CAPSULE PO SCH (09:06)
[2023-01-09] MEDS: BUMETANIDE 1 MG TABLET PO SCH ×2 (09:07→17:26)
[2023-01-09] MEDS: APIXABAN 5 MG TABLET PO SCH ×2 (09:07→17:26)
[2023-01-09] MEDS: QUEtiapine FUMARATE 25 MG TABLET PO SCH ×3 (09:07→17:30)
[2023-01-09] MEDS: METOPROLOL SUCCINATE 25 MG ER TABLET PO SCH (09:07)
[2023-01-09] MEDS: LISINOPRIL 5 MG TABLET PO SCH (09:07)
[2023-01-09] MEDS: LamoTRIgine 25 MG TABLET PO SCH (09:08)
[2023-01-09 09:58] VITALS: BP 100/64
[2023-01-09 11:16] LABS: GLUCOMETER DEV NAME(LOC) 3EX.2; GLUCOSE,POINT OF CARE 138 MG/DL (70-110)
[2023-01-09 13:24] VITALS: BP 112/72
[2023-01-09] MEDS: ACETAMINOPHEN 325 MG TABLET PO PRN (13:24)
[2023-01-09] MEDS: GuaiFENesin/D-METHORPHAN [SUGAR-FREE] 200-20MG/10 ML SYRUP UDCUP PO PRN ×2 (13:25→20:38)
[2023-01-09 14:24] VITALS: BP 105/64
[2023-01-09 16:41] LABS: GLUCOMETER DEV NAME(LOC) 3EX.2; GLUCOSE,POINT OF CARE 122 MG/DL (70-110)
[2023-01-09 16:42] VITALS: BP 105/64
[2023-01-09] MEDS: MELATONIN 5 MG TABLET PO SCH (20:37)
[2023-01-09] MEDS: QUEtiapine FUMARATE 200 MG TABLET PO SCH (20:37)
[2023-01-09] MEDS: DiphenhydrAMINE HCL 25 MG CAPSULE PO SCH (20:37)
[2023-01-09] MEDS: PRAZOSIN HCL 1 MG CAPSULE PO SCH (20:37)
[2023-01-09] MEDS: TraZODone HCL 150 MG TABLET PO SCH (20:38)
[2023-01-09 21:32] LABS: GLUCOMETER DEV NAME(LOC) 3EX.2; GLUCOSE,POINT OF CARE 203 MG/DL (70-110)
[2023-01-09] MEDS ORDERED: ChlorproMAZINE HCL 100 MG TABLET PO PRN ×2 (21:45→22:15)
[2023-01-10] MEDS: MetFORMIN HCL 500 MG TABLET PO SCH ×2 (06:37→16:34)
[2023-01-10] MEDS: INSULIN LISPRO 100 UNITS/ML SQ PRN ×3 (06:58→20:58)
[2023-01-10 07:17] LABS: GLUCOMETER DEV NAME(LOC) 3EX.2; GLUCOSE,POINT OF CARE 157 MG/DL (70-110)
[2023-01-10] MEDS: MULTIVITAMINS WITH MINERALS, THERAPEUTIC TABLET PO SCH (08:32)
[2023-01-10] MEDS: BUMETANIDE 1 MG TABLET PO SCH ×2 (08:32→16:34)
[2023-01-10] MEDS: OMEGA-3/DHA/EPA/FISH OIL 1,000 MG CAPSULE PO SCH (08:32)
[2023-01-10] MEDS: PARoxetine HCL 20 MG TABLET PO SCH (08:32)
[2023-01-10] MEDS: OMEPRAZOLE 20 MG CAPSULE PO SCH (08:33)
[2023-01-10] MEDS: ChlorproMAZINE HCL 50 MG TABLET PO SCH ×3 (08:33→16:34)
[2023-01-10] MEDS: GABAPENTIN 300 MG CAPSULE PO SCH ×4 (08:33→20:25)
[2023-01-10] MEDS: APIXABAN 5 MG TABLET PO SCH ×2 (08:33→16:34)
[2023-01-10 08:58] VITALS: BP 95/55
[2023-01-10] MEDS: METOPROLOL SUCCINATE 25 MG ER TABLET PO SCH (09:00)
[2023-01-10] MEDS: LISINOPRIL 5 MG TABLET PO SCH (09:00)
[2023-01-10 11:56] LABS: GLUCOMETER DEV NAME(LOC) 3EX.2; GLUCOSE,POINT OF CARE 108 MG/DL (70-110)
[2023-01-10 16:06] VITALS: BP 108/69
[2023-01-10 17:46] LABS: GLUCOMETER DEV NAME(LOC) 3EX.2; GLUCOSE,POINT OF CARE 158 MG/DL (70-110)
[2023-01-10 20:20] VITALS: BP 110/70
[2023-01-10] MEDS: TraZODone HCL 150 MG TABLET PO SCH (20:24)
[2023-01-10] MEDS: PRAZOSIN HCL 1 MG CAPSULE PO SCH (20:25)
[2023-01-10] MEDS: DiphenhydrAMINE HCL 25 MG CAPSULE PO SCH (20:26)
[2023-01-10] MEDS: MELATONIN 5 MG TABLET PO SCH (20:26)
[2023-01-10 20:31] LABS: GLUCOMETER DEV NAME(LOC) 3EX.2; GLUCOSE,POINT OF CARE 142 MG/DL (70-110)
[2023-01-10] MEDS: GuaiFENesin/D-METHORPHAN [SUGAR-FREE] 200-20MG/10 ML SYRUP UDCUP PO PRN (20:52)
[2023-01-10] MEDS ORDERED: ChlorproMAZINE HCL 100 MG TABLET PO SCH (21:00)
[2023-01-11] MEDS: MetFORMIN HCL 500 MG TABLET PO SCH ×2 (07:05→17:16)
[2023-01-11] MEDS: INSULIN LISPRO 100 UNITS/ML SQ PRN ×2 (07:08→12:12)
[2023-01-11 07:46] LABS: GLUCOMETER DEV NAME(LOC) 3EX.2; GLUCOSE,POINT OF CARE 148 MG/DL (70-110)
[2023-01-11 08:00] VITALS: BP 105/61
[2023-01-11] MEDS: METOPROLOL SUCCINATE 25 MG ER TABLET PO SCH (09:00)
[2023-01-11] MEDS: LISINOPRIL 5 MG TABLET PO SCH (09:00)
[2023-01-11] MEDS: APIXABAN 5 MG TABLET PO SCH ×2 (09:04→17:17)
[2023-01-11] MEDS: OMEGA-3/DHA/EPA/FISH OIL 1,000 MG CAPSULE PO SCH (09:04)
[2023-01-11] MEDS: OMEPRAZOLE 20 MG CAPSULE PO SCH (09:04)
[2023-01-11] MEDS: MULTIVITAMINS WITH MINERALS, THERAPEUTIC TABLET PO SCH (09:04)
[2023-01-11] MEDS: PARoxetine HCL 20 MG TABLET PO SCH (09:04)
[2023-01-11] MEDS: GABAPENTIN 300 MG CAPSULE PO SCH ×4 (09:05→21:08)
[2023-01-11] MEDS: BUMETANIDE 1 MG TABLET PO SCH ×2 (09:05→17:17)
[2023-01-11] MEDS: ChlorproMAZINE HCL 50 MG TABLET PO SCH ×3 (09:06→17:16)
[2023-01-11 11:48] LABS: GLUCOMETER DEV NAME(LOC) 3EX.2; GLUCOSE,POINT OF CARE 142 MG/DL (70-110)
[2023-01-11] MEDS ORDERED: BENZOCAINE/MENTHOL LOZENGE PO PRN (12:45)
[2023-01-11 17:14] VITALS: BP 97/64
[2023-01-11] MEDS: GuaiFENesin/D-METHORPHAN [SUGAR-FREE] 200-20MG/10 ML SYRUP UDCUP PO PRN (17:59)
[2023-01-11 18:07] LABS: GLUCOMETER DEV NAME(LOC) 3EX.2; GLUCOSE,POINT OF CARE 129 MG/DL (70-110)
[2023-01-11 20:36] LABS: GLUCOMETER DEV NAME(LOC) 3EX.2; GLUCOSE,POINT OF CARE 134 MG/DL (70-110)
[2023-01-11] MEDS: PRAZOSIN HCL 1 MG CAPSULE PO SCH (21:06)
[2023-01-11] MEDS: DiphenhydrAMINE HCL 25 MG CAPSULE PO SCH (21:06)
[2023-01-11] MEDS: TraZODone HCL 150 MG TABLET PO SCH (21:06)
[2023-01-11] MEDS: MELATONIN 5 MG TABLET PO SCH (21:06)
[2023-01-11] MEDS: ChlorproMAZINE HCL 100 MG TABLET PO SCH (21:07)
[2023-01-12 05:37] LABS: GLUCOMETER DEV NAME(LOC) 3EX.2; GLUCOSE,POINT OF CARE 134 MG/DL (70-110)
[2023-01-12] MEDS: MetFORMIN HCL 500 MG TABLET PO SCH ×2 (07:00→16:21)
[2023-01-12] MEDS: INSULIN LISPRO 100 UNITS/ML SQ PRN ×2 (07:10→21:19)
[2023-01-12] MEDS: MULTIVITAMINS WITH MINERALS, THERAPEUTIC TABLET PO SCH (08:56)
[2023-01-12] MEDS: OMEPRAZOLE 20 MG CAPSULE PO SCH (08:56)
[2023-01-12] MEDS: OMEGA-3/DHA/EPA/FISH OIL 1,000 MG CAPSULE PO SCH (08:56)
[2023-01-12] MEDS: ChlorproMAZINE HCL 50 MG TABLET PO SCH ×3 (08:56→16:21)
[2023-01-12] MEDS: GABAPENTIN 300 MG CAPSULE PO SCH ×4 (08:56→21:17)
[2023-01-12] MEDS: APIXABAN 5 MG TABLET PO SCH ×2 (08:57→16:20)
[2023-01-12] MEDS: BUMETANIDE 1 MG TABLET PO SCH ×2 (08:57→16:20)
[2023-01-12] MEDS: LISINOPRIL 5 MG TABLET PO SCH (08:58)
[2023-01-12] MEDS: PARoxetine HCL 10 MG TABLET PO SCH (08:58)
[2023-01-12] MEDS: METOPROLOL SUCCINATE 25 MG ER TABLET PO SCH (08:58)
[2023-01-12 11:46] LABS: GLUCOMETER DEV NAME(LOC) 3EX.2; GLUCOSE,POINT OF CARE 127 MG/DL (70-110)
[2023-01-12 16:11] VITALS: BP 99/69
[2023-01-12 17:07] LABS: GLUCOMETER DEV NAME(LOC) 3EX.2; GLUCOSE,POINT OF CARE 126 MG/DL (70-110)
[2023-01-12 21:11] LABS: GLUCOMETER DEV NAME(LOC) 3EX.2; GLUCOSE,POINT OF CARE 168 MG/DL (70-110)
[2023-01-12] MEDS: PRAZOSIN HCL 1 MG CAPSULE PO SCH (21:17)
[2023-01-12] MEDS: ChlorproMAZINE HCL 100 MG TABLET PO SCH (21:18)
[2023-01-12] MEDS: TraZODone HCL 150 MG TABLET PO SCH (21:18)
[2023-01-12] MEDS: MELATONIN 5 MG TABLET PO SCH (21:19)
[2023-01-12 21:27] VITALS: BP 100/64
[2023-01-13 05:51] LABS: GLUCOMETER DEV NAME(LOC) 3EX.2; GLUCOSE,POINT OF CARE 137 MG/DL (70-110)
[2023-01-13] MEDS: MetFORMIN HCL 500 MG TABLET PO SCH (06:37)
[2023-01-13 09:00] VITALS: BP 96/60
[2023-01-13] MEDS ORDERED: CHLO50TA61 PO (09:49)
[2023-01-13] MEDS ORDERED: PRAZ1 PO (09:49)
[2023-01-13] MEDS ORDERED: CHLO100T42 PO (09:49)
[2023-01-13] MEDS ORDERED: MELA5TAB40 PO (09:49)
[2023-01-13] MEDS ORDERED: TRAZ-283 PO (09:49)
[2023-01-13] MEDS ORDERED: OMEG-135 PO (09:49)
[2023-01-13] MEDS ORDERED: PARO10TA71 PO (09:49)
[2023-01-13] MEDS ORDERED: GABA-1181 PO (09:49)
[2023-01-13] MEDS: MULTIVITAMINS WITH MINERALS, THERAPEUTIC TABLET PO SCH (09:52)
[2023-01-13] MEDS: OMEGA-3/DHA/EPA/FISH OIL 1,000 MG CAPSULE PO SCH (09:52)
[2023-01-13] MEDS: APIXABAN 5 MG TABLET PO SCH (09:52)
[2023-01-13] MEDS: ChlorproMAZINE HCL 50 MG TABLET PO SCH ×2 (09:52→13:00)
[2023-01-13] MEDS: PARoxetine HCL 10 MG TABLET PO SCH (09:53)
[2023-01-13] MEDS: GABAPENTIN 300 MG CAPSULE PO SCH ×2 (09:53→13:00)
[2023-01-13] MEDS: OMEPRAZOLE 20 MG CAPSULE PO SCH (09:53)
[2023-01-13] MEDS: BUMETANIDE 1 MG TABLET PO SCH (09:54)
[2023-01-13] MEDS: LISINOPRIL 5 MG TABLET PO SCH (09:57)
[2023-01-13] MEDS: METOPROLOL SUCCINATE 25 MG ER TABLET PO SCH (09:58)
[2023-01-13] MEDS: INSULIN LISPRO 100 UNITS/ML SQ PRN (11:03)
[2023-01-13 11:16] LABS: GLUCOMETER DEV NAME(LOC) 3EX.2; GLUCOSE,POINT OF CARE 148 MG/DL (70-110)
== END 2023-01-13 14:25 | disposition home or self-care (01) | DRG 753 ==
LOC: EMS 10:09 → 3EI 14:55
PROVIDERS: ADMIT Psychiatry & Neurology Psychiatry; ATTEND Psychiatry & Neurology Psychiatry
DX: F31.60 Bipolar disorder, current episode mixed, unspecified (principal); F25.1 Schizoaffective disorder, depressive type; I42.9 Cardiomyopathy, unspecified; R45.851 Suicidal ideations; I50.9 Heart failure, unspecified; E11.9 Type 2 diabetes mellitus without complications; I11.0 Hypertensive heart disease with heart failure; E78.00 Pure hypercholesterolemia, unspecified; F17.210 Nicotine dependence, cigarettes, uncomplicated; F41.0 Panic disorder [episodic paroxysmal anxiety]; F60.0 Paranoid personality disorder; Z79.899 Other long term (current) drug therapy; Z20.822 Contact with and (suspected) exposure to COVID-19; J44.9 Chronic obstructive pulmonary disease, unspecified; S51.811A Laceration without foreign body of right forearm, initial encounter; S51.812A Laceration without foreign body of left forearm, initial encounter; Y04.0XXA Assault by unarmed brawl or fight, initial encounter; F15.10 Other stimulant abuse, uncomplicated; K21.9 Gastro-esophageal reflux disease without esophagitis; I95.1 Orthostatic hypotension; Z90.81 Acquired absence of spleen; Z91.14 Patient's other noncompliance with medication regimen; Z55.9 Problems related to education and literacy, unspecified; Z59.9 Problem related to housing and economic circumstances, unspecified; Z63.8 Other specified problems related to primary support group; Z65.3 Problems related to other legal circumstances; Y93.89 Activity, other specified; Y92.89 Other specified places as the place of occurrence of the external cause; Y99.8 Other external cause status
CPT/HCPCS: 80053; 80061; 80307; 82962; 83036; 84439; 84443; 84484; 84702; 84703; 85025; 86592; 87081; 90715; 93005; 93306; 97110; 97140; 97161; 99285; G0480; J1050; J3490; J7030; Q9967

== ENCOUNTER 2023-01-22 13:56 | Inpatient (IN) | payer MEDICAID, OTHER ==
[~2023-01-22] VITALS: Ht 160 cm; Wt 89.4 kg
[~2023-01-22 13:56] MED LIST changes: +APIX5TAB PO; +BUME1TAB6 PO; +CHLO100T42 PO; +CHLO50TA61 PO; +LISI-892 PO; +MELA5TAB40 PO; +METO25XL PO; +OMEG-135 PO; +OMEP40CA21 PO; +PARO10TA71 PO; +PRAZ1 PO; -QUET100T PO; +TRAZ-283 PO; -VENL50TA44 PO
[2023-01-22 16:03] LABS: BASOPHILS % (AUTO) 1.1 % (0.0-2.0); EOSINOPHILS % (AUTO) 3.1 % (1.0-6.0); HEMATOCRIT 36.6 % (36-46); HEMOGLOBIN 11.8 g/dL (12.0-16.0); LYMPHOCYTES # (AUTO) 3.2 K/uL (1.0-4.8); MEAN CORPUSCULAR HEMOGLOBIN 24.8 pg (26.0-34.0); MEAN CORPUSCULAR HGB CONC 32.4 G/dL (31.0-37.0); MEAN CORPUSCULAR VOLUME 77 fL (80-100); MONOCYTES # (AUTO) 0.7 K/uL (0.1-1.0); MONOCYTES % (AUTO) 8.3 % (2.0-9.0); NEUTROPHILS # (AUTO) 4.5 K/uL (1.8-7.7); NEUTROPHILS % (AUTO) 51.5 % (40.0-70.0); PLATELET COUNT (AUTO) 512 K/uL (150-450); RED BLOOD CELL COUNT(AUTO) 4.78 MIL/uL (4.00-5.20); RED CELL DISTRIBUTION WIDTH 22.1 % (11.5-14.5)
[2023-01-22 16:10] LABS: COVID AG,FIA SOURCE NASOPHARYNGEAL
[2023-01-22 16:14] LABS: ANION GAP 8 mmol/L (8-16); CALCIUM, TOTAL 9.2 mg/dL (8.8-10.5); CARBON DIOXIDE 27 mmol/L (22-29); CHLORIDE 100 mmol/L (98-107); GLOMERULAR FILTR. RATE CALC > 60 mL/min (>60); GLUCOSE,RANDOM 175 mg/dL (70-110); POTASSIUM 3.9 mmol/L (3.5-5.1); SODIUM SERUM 135 mmol/L (136-145); UREA NITROGEN, BLOOD 14 mg/dL (7-18)
[2023-01-22 16:20] LABS: ALANINE AMINOTRANSFERASE 28 U/L (12-78); ALBUMIN 3.4 g/dL (3.4-5.0); ALKALINE PHOSPHATASE 75 U/L (46-116); ASPARTATE AMINOTRANSFERASE 28 U/L (15-37); BILIRUBIN,TOTAL 0.4 mg/dL (0.1-1.0); TOTAL PROTEIN, SERUM 7.4 g/dL (6.4-8.2)
[2023-01-22] MEDS ORDERED: OLANZapine 5 MG RAPDIS TABLET PO PRN (18:00)
[2023-01-22] MEDS ORDERED: ZOLPIDEM TARTRATE 10 MG TABLET PO PRN (18:00)
[2023-01-22] MEDS ORDERED: LORazepam 2 MG TABLET PO ONE (18:30)
[2023-01-22] MEDS ORDERED: ChlorproMAZINE HCL 100 MG TABLET PO ONE (18:30)
[2023-01-23 01:51] LABS: GLUCOMETER DEV NAME(LOC) BV3S.; GLUCOSE,POINT OF CARE 161 MG/DL (70-110)
[2023-01-23 02:48] VITALS: BP 107/74
[2023-01-23 08:16] VITALS: BP 119/84
[2023-01-23] MEDS: LISINOPRIL 10 MG TABLET PO SCH (09:53)
[2023-01-23] MEDS: METOPROLOL SUCCINATE 25 MG ER TABLET PO SCH (09:53)
[2023-01-23] MEDS ORDERED: ACETAMINOPHEN 325 MG TABLET PO PRN (10:30)
[2023-01-23] MEDS ORDERED: HydrOXYzine PAMOATE 50 MG CAPSULE PO PRN (10:30)
[2023-01-23] MEDS ORDERED: PARoxetine HCL 10 MG TABLET PO ONE (10:30)
[2023-01-23] MEDS ORDERED: GuaiFENesin/D-METHORPHAN [SUGAR-FREE] 200-20MG/10 ML SYRUP UDCUP PO PRN (10:30)
[2023-01-23] MEDS ORDERED: ChlorproMAZINE HCL 100 MG TABLET PO PRN (10:30)
[2023-01-23] MEDS ORDERED: MAG HYDROX/AL HYDROX/SIMETH ES 30 ML SUSPENSION UDCUP PO PRN (10:30)
[2023-01-23] MEDS ORDERED: MAGNESIUM HYDROXIDE SUSPENSION 30 ML UDCUP PO PRN (10:30)
[2023-01-23] MEDS ORDERED: LOPERAMIDE HCL 2 MG CAPSULE PO PRN (10:30)
[2023-01-23] MEDS ORDERED: PROMETHAZINE HCL 25 MG TABLET PO PRN (10:30)
[2023-01-23] MEDS: GABAPENTIN 300 MG CAPSULE PO SCH ×2 (12:42→16:32)
[2023-01-23] MEDS ORDERED: GLUCAGON,HUMAN RECOMBINANT 1 MG VIAL IM PRN (12:45)
[2023-01-23] MEDS: APIXABAN 5 MG TABLET PO SCH ×2 (12:56→16:32)
[2023-01-23] MEDS: BUMETANIDE 1 MG TABLET PO SCH ×2 (12:56→16:31)
[2023-01-23] MEDS ORDERED: ChlorproMAZINE HCL 50 MG TABLET PO SCH (13:00)
[2023-01-23] MEDS ORDERED: RisperiDONE 0.5 MG TABLET PO PRN (13:30)
[2023-01-23] MEDS: THIAMINE 100 MG TABLET PO SCH (16:32)
[2023-01-23 17:36] LABS: GLUCOMETER DEV NAME(LOC) BV3S.; GLUCOSE,POINT OF CARE 135 MG/DL (70-110)
[2023-01-23 20:00] VITALS: BP 110/68
[2023-01-23] MEDS: INSULIN LISPRO 100 UNITS/ML SQ PRN (20:46)
[2023-01-23] MEDS: TraZODone HCL 150 MG TABLET PO SCH (20:47)
[2023-01-23] MEDS: PRAZOSIN HCL 1 MG CAPSULE PO SCH (20:48)
[2023-01-23] MEDS: MELATONIN 5 MG TABLET PO SCH (20:48)
[2023-01-23 20:51] LABS: GLUCOMETER DEV NAME(LOC) BV3S.; GLUCOSE,POINT OF CARE 165 MG/DL (70-110)
[2023-01-23] MEDS ORDERED: ChlorproMAZINE HCL 100 MG TABLET PO SCH (21:00)
[2023-01-23] MEDS ORDERED: RisperiDONE 2 MG TABLET PO SCH (21:00)
[2023-01-24 06:26] LABS: GLUCOMETER DEV NAME(LOC) BV3S.; GLUCOSE,POINT OF CARE 137 MG/DL (70-110)
[2023-01-24] MEDS: THIAMINE 100 MG TABLET PO SCH ×2 (08:08→16:54)
[2023-01-24] MEDS: GABAPENTIN 300 MG CAPSULE PO SCH ×3 (08:08→16:54)
[2023-01-24] MEDS: APIXABAN 5 MG TABLET PO SCH ×2 (08:08→16:54)
[2023-01-24] MEDS: OMEGA-3/DHA/EPA/FISH OIL 1,000 MG CAPSULE PO SCH (08:08)
[2023-01-24] MEDS: PARoxetine HCL 10 MG TABLET PO SCH (08:09)
[2023-01-24] MEDS: NALTREXONE HCL 50 MG TABLET PO SCH (08:09)
[2023-01-24] MEDS: METOPROLOL SUCCINATE 25 MG ER TABLET PO SCH (08:09)
[2023-01-24] MEDS: LISINOPRIL 10 MG TABLET PO SCH (08:09)
[2023-01-24] MEDS: BUMETANIDE 1 MG TABLET PO SCH ×2 (08:09→16:54)
[2023-01-24] MEDS: MULTIVITAMINS WITH MINERALS, THERAPEUTIC TABLET PO SCH (08:09)
[2023-01-24] MEDS: FOLIC ACID 1 MG TABLET PO SCH (08:09)
[2023-01-24 08:32] LABS: CHOL/HDL RATIO 6.1 (3.9-5.7); FREE T4 (FREE THYROXINE) 1.1 ng/dL (0.76-1.46); THYROID STIMULATING HORMONE 1.28 uIU/mL (0.36-3.74)
[2023-01-24] MEDS: INSULIN LISPRO 100 UNITS/ML SQ PRN ×3 (11:37→20:57)
[2023-01-24 11:46] LABS: GLUCOMETER DEV NAME(LOC) BV3S.; GLUCOSE,POINT OF CARE 172 MG/DL (70-110)
[2023-01-24 12:09] VITALS: BP 138/79
[2023-01-24 17:22] VITALS: BP 123/81
[2023-01-24 17:36] LABS: GLUCOMETER DEV NAME(LOC) BV3S.; GLUCOSE,POINT OF CARE 157 MG/DL (70-110)
[2023-01-24] MEDS: LORazepam 2 MG TABLET PO PRN (17:50)
[2023-01-24 20:18] VITALS: BP 118/79
[2023-01-24] MEDS: RisperiDONE 3 MG TABLET PO SCH (20:50)
[2023-01-24] MEDS: TraZODone HCL 150 MG TABLET PO SCH (20:51)
[2023-01-24] MEDS: MELATONIN 5 MG TABLET PO SCH (20:51)
[2023-01-24] MEDS: PRAZOSIN HCL 1 MG CAPSULE PO SCH (20:51)
[2023-01-24 21:11] LABS: GLUCOMETER DEV NAME(LOC) BV3S.; GLUCOSE,POINT OF CARE 151 MG/DL (70-110)
[2023-01-25] MEDS: INSULIN LISPRO 100 UNITS/ML SQ PRN ×3 (06:38→21:12)
[2023-01-25 06:51] LABS: GLUCOMETER DEV NAME(LOC) BV3S.; GLUCOSE,POINT OF CARE 160 MG/DL (70-110)
[2023-01-25 08:19] VITALS: BP 119/77
[2023-01-25] MEDS: FOLIC ACID 1 MG TABLET PO SCH (09:19)
[2023-01-25] MEDS: MULTIVITAMINS WITH MINERALS, THERAPEUTIC TABLET PO SCH (09:19)
[2023-01-25] MEDS: APIXABAN 5 MG TABLET PO SCH ×2 (09:20→17:00)
[2023-01-25] MEDS: PARoxetine HCL 10 MG TABLET PO SCH (09:20)
[2023-01-25] MEDS: GABAPENTIN 300 MG CAPSULE PO SCH ×3 (09:20→17:00)
[2023-01-25] MEDS: BUMETANIDE 1 MG TABLET PO SCH ×2 (09:20→17:00)
[2023-01-25] MEDS: METOPROLOL SUCCINATE 25 MG ER TABLET PO SCH (09:20)
[2023-01-25] MEDS: OMEGA-3/DHA/EPA/FISH OIL 1,000 MG CAPSULE PO SCH (09:20)
[2023-01-25] MEDS: LISINOPRIL 10 MG TABLET PO SCH (09:20)
[2023-01-25] MEDS: NALTREXONE HCL 50 MG TABLET PO SCH (09:20)
[2023-01-25] MEDS: THIAMINE 100 MG TABLET PO SCH ×2 (09:20→17:00)
[2023-01-25 11:41] LABS: GLUCOMETER DEV NAME(LOC) BV3S.; GLUCOSE,POINT OF CARE 180 MG/DL (70-110)
[2023-01-25 21:04] VITALS: BP 122/69
[2023-01-25] MEDS: PRAZOSIN HCL 1 MG CAPSULE PO SCH (21:05)
[2023-01-25] MEDS: MELATONIN 5 MG TABLET PO SCH (21:06)
[2023-01-25] MEDS: TraZODone HCL 150 MG TABLET PO SCH (21:06)
[2023-01-25] MEDS: RisperiDONE 3 MG TABLET PO SCH (21:06)
[2023-01-25 21:21] LABS: GLUCOMETER DEV NAME(LOC) BV3S.; GLUCOSE,POINT OF CARE 293 MG/DL (70-110)
[2023-01-26 06:36] LABS: GLUCOMETER DEV NAME(LOC) BV3S.; GLUCOSE,POINT OF CARE 175 MG/DL (70-110)
[2023-01-26] MEDS: INSULIN LISPRO 100 UNITS/ML SQ PRN ×4 (06:53→20:28)
[2023-01-26 08:18] VITALS: BP 100/61
[2023-01-26] MEDS: GABAPENTIN 300 MG CAPSULE PO SCH ×3 (08:40→16:49)
[2023-01-26] MEDS: APIXABAN 5 MG TABLET PO SCH ×2 (08:40→16:49)
[2023-01-26] MEDS: BUMETANIDE 1 MG TABLET PO SCH ×2 (08:40→16:43)
[2023-01-26] MEDS: THIAMINE 100 MG TABLET PO SCH ×2 (08:40→16:50)
[2023-01-26] MEDS: MULTIVITAMINS WITH MINERALS, THERAPEUTIC TABLET PO SCH (08:40)
[2023-01-26] MEDS: NALTREXONE HCL 50 MG TABLET PO SCH (08:41)
[2023-01-26] MEDS: METOPROLOL SUCCINATE 25 MG ER TABLET PO SCH (08:41)
[2023-01-26] MEDS: FOLIC ACID 1 MG TABLET PO SCH (08:41)
[2023-01-26] MEDS: OMEGA-3/DHA/EPA/FISH OIL 1,000 MG CAPSULE PO SCH (08:41)
[2023-01-26] MEDS: PARoxetine HCL 10 MG TABLET PO SCH (08:41)
[2023-01-26] MEDS: LISINOPRIL 10 MG TABLET PO SCH (08:41)
[2023-01-26 11:31] LABS: GLUCOMETER DEV NAME(LOC) BV3S.; GLUCOSE,POINT OF CARE 165 MG/DL (70-110)
[2023-01-26] MEDS ORDERED: GABA-1181 PO (15:32)
[2023-01-26] MEDS ORDERED: RISP3TAB63 PO (15:32)
[2023-01-26] MEDS ORDERED: OMEG-135 PO (15:32)
[2023-01-26] MEDS ORDERED: MELA5TAB40 PO (15:32)
[2023-01-26] MEDS ORDERED: PARO10TA71 PO (15:32)
[2023-01-26] MEDS ORDERED: NALT50TA PO (15:32)
[2023-01-26] MEDS ORDERED: TRAZ-283 PO (15:32)
[2023-01-26] MEDS: LORazepam 2 MG TABLET PO PRN (16:57)
[2023-01-26 17:26] LABS: GLUCOMETER DEV NAME(LOC) BV3S.; GLUCOSE,POINT OF CARE 264 MG/DL (70-110)
[2023-01-26] MEDS: RisperiDONE 3 MG TABLET PO SCH (20:30)
[2023-01-26] MEDS: MELATONIN 5 MG TABLET PO SCH (20:30)
[2023-01-26] MEDS: PRAZOSIN HCL 1 MG CAPSULE PO SCH (20:30)
[2023-01-26] MEDS: TraZODone HCL 150 MG TABLET PO SCH (20:31)
[2023-01-26 20:41] LABS: GLUCOMETER DEV NAME(LOC) BV3S.; GLUCOSE,POINT OF CARE 243 MG/DL (70-110)
[2023-01-26 22:22] VITALS: BP 112/66
[2023-01-27 06:21] LABS: GLUCOMETER DEV NAME(LOC) BV3S.; GLUCOSE,POINT OF CARE 158 MG/DL (70-110)
[2023-01-27] MEDS: INSULIN LISPRO 100 UNITS/ML SQ PRN ×2 (06:24→12:06)
[2023-01-27 08:18] VITALS: BP 92/51
[2023-01-27] MEDS: FOLIC ACID 1 MG TABLET PO SCH (08:25)
[2023-01-27] MEDS: NALTREXONE HCL 50 MG TABLET PO SCH (08:25)
[2023-01-27] MEDS: GABAPENTIN 300 MG CAPSULE PO SCH ×3 (08:25→16:02)
[2023-01-27] MEDS: LISINOPRIL 10 MG TABLET PO SCH (08:25)
[2023-01-27] MEDS: MULTIVITAMINS WITH MINERALS, THERAPEUTIC TABLET PO SCH (08:25)
[2023-01-27] MEDS: APIXABAN 5 MG TABLET PO SCH ×2 (08:25→16:02)
[2023-01-27] MEDS: OMEGA-3/DHA/EPA/FISH OIL 1,000 MG CAPSULE PO SCH (08:25)
[2023-01-27] MEDS: THIAMINE 100 MG TABLET PO SCH ×2 (08:25→16:02)
[2023-01-27] MEDS: PARoxetine HCL 10 MG TABLET PO SCH (08:25)
[2023-01-27] MEDS: BUMETANIDE 1 MG TABLET PO SCH ×2 (08:25→16:02)
[2023-01-27] MEDS: METOPROLOL SUCCINATE 25 MG ER TABLET PO SCH (08:25)
[2023-01-27 08:30] VITALS: BP 108/68
[2023-01-27 12:21] LABS: GLUCOMETER DEV NAME(LOC) BV3S.; GLUCOSE,POINT OF CARE 207 MG/DL (70-110)
== END 2023-01-27 17:03 | disposition home or self-care (01) | DRG 753 ==
LOC: EMS 13:56 → B3A 19:00 → UNDOADMIN 19:44
PROVIDERS: ADMIT Psychiatry & Neurology Psychiatry; ATTEND Psychiatry & Neurology Psychiatry
DX: F31.64 Bipolar disorder, current episode mixed, severe, with psychotic features (principal); I43 Cardiomyopathy in diseases classified elsewhere; R45.851 Suicidal ideations; I50.9 Heart failure, unspecified; I11.0 Hypertensive heart disease with heart failure; F41.0 Panic disorder [episodic paroxysmal anxiety]; F60.0 Paranoid personality disorder; E11.9 Type 2 diabetes mellitus without complications; E78.00 Pure hypercholesterolemia, unspecified; E66.9 Obesity, unspecified; F41.9 Anxiety disorder, unspecified; K21.9 Gastro-esophageal reflux disease without esophagitis; F15.10 Other stimulant abuse, uncomplicated; F17.200 Nicotine dependence, unspecified, uncomplicated; Z20.822 Contact with and (suspected) exposure to COVID-19; J44.9 Chronic obstructive pulmonary disease, unspecified; Z55.9 Problems related to education and literacy, unspecified; Z59.9 Problem related to housing and economic circumstances, unspecified; Z63.9 Problem related to primary support group, unspecified; Z79.01 Long term (current) use of anticoagulants; Z65.3 Problems related to other legal circumstances; Z79.899 Other long term (current) drug therapy; Z90.81 Acquired absence of spleen; Z91.51 Personal history of suicidal behavior; Z68.34 Body mass index [BMI] 34.0-34.9, adult
CPT/HCPCS: 80053; 80061; 82962; 84439; 84443; 84703; 85025; 87081; 99285; G0480; Q9967

== ENCOUNTER 2023-03-13 13:19 | Inpatient (IN) | payer MEDICAID, OTHER ==
[~2023-03-13] VITALS: Ht 152.4 cm; Wt 93.0 kg
[~2023-03-13 13:19] MED LIST changes: -CHLO100T42 PO; -CHLO50TA61 PO; +NALT50TA PO; -OMEP40CA21 PO; +RISP3TAB63 PO
[2023-03-13] MEDS ORDERED: LISI-661 PO (13:38)
[2023-03-13] MEDS ORDERED: DAPA10TA PO (13:38)
[2023-03-13] MEDS ORDERED: METO-327 PO (13:38)
[2023-03-13] MEDS ORDERED: FERR325T23 PO (13:38)
[2023-03-13] MEDS ORDERED: RISP3TAB44 PO (13:38)
[2023-03-13] MEDS ORDERED: LITH300T29 PO ×2 (13:38)
[2023-03-13] MEDS ORDERED: BENZ0.5T49 PO (13:38)
[2023-03-13] MEDS ORDERED: OMEP20 PO (13:38)
[2023-03-13] MEDS ORDERED: METF-1211 PO (13:38)
[2023-03-13] MEDS ORDERED: CHLO10TA19 PO (13:38)
[2023-03-13 14:20] LABS: AMPHET/METH SCREEN,URINE NEGATIVE (NEGATIVE); BARBITURATE SCREEN, URINE NEGATIVE (NEGATIVE); BENZODIAZEPINES SCREEN,URINE NEGATIVE (NEGATIVE); CANNABINOID SCREEN,URINE NEGATIVE (NEGATIVE); COCAINE SCREEN,URINE NEGATIVE (NEGATIVE); METHADONE SCREEN, URINE NEGATIVE (NEGATIVE); OPIATE SCREEN,URINE NEGATIVE (NEGATIVE); PHENCYCLIDINE SCREEN,URINE NEGATIVE (NEGATIVE)
[2023-03-13 14:27] LABS: BASOPHILS % (AUTO) 1.6 % (0.0-2.0); EOSINOPHILS % (AUTO) 1.1 % (1.0-6.0); HEMATOCRIT 37.6 % (36-46); HEMOGLOBIN 12.6 g/dL (12.0-16.0); LYMPHOCYTES # (AUTO) 2.9 K/uL (1.0-4.8); LYMPHOCYTES % (AUTO) 30.2 % (22.0-44.0); MEAN CORPUSCULAR HEMOGLOBIN 28.1 pg (26.0-34.0); MEAN CORPUSCULAR HGB CONC 33.5 G/dL (31.0-37.0); MEAN CORPUSCULAR VOLUME 84 fL (80-100); MONOCYTES # (AUTO) 0.7 K/uL (0.1-1.0); MONOCYTES % (AUTO) 7.4 % (2.0-9.0); NEUTROPHILS # (AUTO) 5.8 K/uL (1.8-7.7); NEUTROPHILS % (AUTO) 59.7 % (40.0-70.0); PLATELET COUNT (AUTO) 551 K/uL (150-450); RED BLOOD CELL COUNT(AUTO) 4.48 MIL/uL (4.00-5.20); RED CELL DISTRIBUTION WIDTH 15.6 % (11.5-14.5)
[2023-03-13 14:36] LABS: ANION GAP 12 mmol/L (8-16); CALCIUM, TOTAL 8.9 mg/dL (8.8-10.5); CARBON DIOXIDE 25 mmol/L (22-29); CHLORIDE 102 mmol/L (98-107); GLOMERULAR FILTR. RATE CALC > 60 mL/min (>60); GLUCOSE,RANDOM 162 mg/dL (70-110); POTASSIUM 3.6 mmol/L (3.5-5.1); SODIUM SERUM 139 mmol/L (136-145); UREA NITROGEN, BLOOD 14 mg/dL (7-18)
[2023-03-13 14:43] LABS: ALANINE AMINOTRANSFERASE 23 U/L (12-78); ALBUMIN 3.5 g/dL (3.4-5.0); ALKALINE PHOSPHATASE 84 U/L (46-116); ASPARTATE AMINOTRANSFERASE 23 U/L (15-37); BILIRUBIN,TOTAL 0.4 mg/dL (0.1-1.0); TOTAL PROTEIN, SERUM 7.7 g/dL (6.4-8.2)
[2023-03-13] MEDS ORDERED: ZOLPIDEM TARTRATE 10 MG TABLET PO PRN (15:30)
[2023-03-13] MEDS ORDERED: LITH300T PO ×2 (15:37)
[2023-03-13 15:49] LABS: COVID AG,FIA SOURCE NASAL SWAB
[2023-03-13] MEDS: LORazepam 2 MG TABLET PO PRN (16:42)
[2023-03-13] MEDS ORDERED: ACETAMINOPHEN 325 MG TABLET PO ONE (19:45)
[2023-03-14 00:18] VITALS: BP 110/60
[2023-03-14] MEDS ORDERED: OMEGA-3/DHA/EPA/FISH OIL 1,000 MG CAPSULE PO SCH (09:00)
[2023-03-14] MEDS: MetFORMIN HCL 500 MG TABLET PO SCH ×2 (09:11→17:06)
[2023-03-14] MEDS: GABAPENTIN 300 MG CAPSULE PO SCH ×3 (09:11→17:04)
[2023-03-14] MEDS: OMEPRAZOLE 20 MG CAPSULE PO SCH (09:11)
[2023-03-14] MEDS: LISINOPRIL 10 MG TABLET PO SCH (09:11)
[2023-03-14] MEDS: FERROUS SULFATE 325 MG EC TABLET PO SCH (09:11)
[2023-03-14] MEDS: DAPAGLIFLOZIN PROPANEDIOL 5 MG TABLET PO SCH (09:12)
[2023-03-14] MEDS: BUMETANIDE 1 MG TABLET PO SCH ×2 (09:13→17:04)
[2023-03-14] MEDS: APIXABAN 5 MG TABLET PO SCH ×2 (09:13→17:04)
[2023-03-14] MEDS: METOPROLOL SUCCINATE 50 MG ER TABLET PO SCH (09:13)
[2023-03-14 09:26] VITALS: BP 128/78
[2023-03-14] MEDS: LORazepam 2 MG TABLET PO PRN ×2 (11:00→17:04)
[2023-03-14 16:46] VITALS: BP 97/65
[2023-03-14] MEDS: OLANZapine 5 MG RAPDIS TABLET PO PRN (17:04)
[2023-03-14] MEDS ORDERED: LOPERAMIDE HCL 2 MG CAPSULE PO PRN (17:30)
[2023-03-14] MEDS ORDERED: MAGNESIUM HYDROXIDE SUSPENSION 30 ML UDCUP PO PRN (17:30)
[2023-03-14] MEDS ORDERED: RisperiDONE 0.5 MG TABLET PO PRN (17:30)
[2023-03-14] MEDS ORDERED: MAG HYDROX/AL HYDROX/SIMETH ES 30 ML SUSPENSION UDCUP PO PRN (17:30)
[2023-03-14] MEDS ORDERED: PROMETHAZINE HCL 25 MG TABLET PO PRN (17:30)
[2023-03-14] MEDS ORDERED: ACETAMINOPHEN 325 MG TABLET PO PRN (17:30)
[2023-03-14] MEDS ORDERED: HydrOXYzine PAMOATE 50 MG CAPSULE PO PRN (17:30)
[2023-03-14] MEDS ORDERED: GuaiFENesin/D-METHORPHAN [SUGAR-FREE] 200-20MG/10 ML SYRUP UDCUP PO PRN (17:30)
[2023-03-14] MEDS: MELATONIN 5 MG TABLET PO SCH (20:32)
[2023-03-14] MEDS: PRAZOSIN HCL 2 MG CAPSULE PO SCH (20:33)
[2023-03-14] MEDS: LITHIUM CARBONATE 300 MG TABLET PO SCH (20:33)
[2023-03-14] MEDS: TraZODone HCL 100 MG TABLET PO SCH (20:33)
[2023-03-14] MEDS ORDERED: MELATONIN 5 MG TABLET PO SCH (21:00)
[2023-03-14] MEDS ORDERED: PRAZOSIN HCL 2 MG CAPSULE PO SCH (21:00)
[2023-03-14 22:05] VITALS: BP 102/68
[2023-03-15] MEDS: MetFORMIN HCL 500 MG TABLET PO SCH ×2 (06:44→16:43)
[2023-03-15] MEDS: FERROUS SULFATE 325 MG EC TABLET PO SCH (06:44)
[2023-03-15 08:23] LABS: HEMOGLOBIN A1C 7.3 % (3.8-5.6)
[2023-03-15] MEDS: LISINOPRIL 10 MG TABLET PO SCH (09:00)
[2023-03-15] MEDS ORDERED: PARoxetine HCL 20 MG TABLET PO SCH (09:00)
[2023-03-15] MEDS: METOPROLOL SUCCINATE 50 MG ER TABLET PO SCH (09:00)
[2023-03-15] MEDS: NALTREXONE HCL 50 MG TABLET PO SCH (09:18)
[2023-03-15] MEDS: LITHIUM CARBONATE 300 MG TABLET PO SCH ×2 (09:19→20:50)
[2023-03-15] MEDS: OMEPRAZOLE 20 MG CAPSULE PO SCH (09:19)
[2023-03-15] MEDS: GABAPENTIN 300 MG CAPSULE PO SCH ×3 (09:19→16:17)
[2023-03-15] MEDS: MULTIVITAMINS WITH MINERALS, THERAPEUTIC TABLET PO SCH (09:20)
[2023-03-15] MEDS: BUMETANIDE 1 MG TABLET PO SCH ×2 (09:20→16:16)
[2023-03-15] MEDS: THIAMINE 100 MG TABLET PO SCH ×2 (09:20→16:17)
[2023-03-15] MEDS: FOLIC ACID 1 MG TABLET PO SCH (09:20)
[2023-03-15] MEDS: RisperiDONE 1 MG TABLET PO SCH ×2 (09:20→16:16)
[2023-03-15] MEDS: OMEGA-3/DHA/EPA/FISH OIL 1,000 MG CAPSULE PO SCH (09:21)
[2023-03-15] MEDS: APIXABAN 5 MG TABLET PO SCH ×2 (09:21→16:17)
[2023-03-15] MEDS: DAPAGLIFLOZIN PROPANEDIOL 5 MG TABLET PO SCH (09:21)
[2023-03-15 09:38] VITALS: BP 99/50
[2023-03-15] MEDS ORDERED: DEXTROSE 50%-WATER 25 GM/50 ML SYRINGE IVP PRN (15:30)
[2023-03-15 17:11] VITALS: BP 101/69
[2023-03-15] MEDS: INSULIN LISPRO 100 UNITS/ML SQ PRN ×2 (17:50→20:30)
[2023-03-15 18:26] LABS: GLUCOMETER DEV NAME(LOC) 3E.C; GLUCOSE,POINT OF CARE 185 MG/DL (70-110)
[2023-03-15 20:31] LABS: GLUCOMETER DEV NAME(LOC) 3E.C; GLUCOSE,POINT OF CARE 178 MG/DL (70-110)
[2023-03-15] MEDS: PRAZOSIN HCL 2 MG CAPSULE PO SCH (20:49)
[2023-03-15] MEDS: MELATONIN 5 MG TABLET PO SCH (20:50)
[2023-03-15] MEDS: TraZODone HCL 100 MG TABLET PO SCH (20:50)
[2023-03-15 23:00] VITALS: BP 105/77
[2023-03-16 05:31] LABS: GLUCOMETER DEV NAME(LOC) 3E.C; GLUCOSE,POINT OF CARE 169 MG/DL (70-110)
[2023-03-16] MEDS: FERROUS SULFATE 325 MG EC TABLET PO SCH (07:02)
[2023-03-16] MEDS: MetFORMIN HCL 500 MG TABLET PO SCH (07:02)
[2023-03-16] MEDS: INSULIN LISPRO 100 UNITS/ML SQ PRN ×2 (07:08→11:49)
[2023-03-16] MEDS ORDERED: PARoxetine HCL 10 MG TABLET PO SCH (09:00)
[2023-03-16] MEDS ORDERED: RisperiDONE 2 MG TABLET PO SCH (09:00)
[2023-03-16 09:47] VITALS: BP 100/61
[2023-03-16] MEDS: OMEGA-3/DHA/EPA/FISH OIL 1,000 MG CAPSULE PO SCH (10:08)
[2023-03-16] MEDS: APIXABAN 5 MG TABLET PO SCH (10:10)
[2023-03-16] MEDS: FOLIC ACID 1 MG TABLET PO SCH (10:10)
[2023-03-16] MEDS: MULTIVITAMINS WITH MINERALS, THERAPEUTIC TABLET PO SCH (10:10)
[2023-03-16] MEDS: GABAPENTIN 300 MG CAPSULE PO SCH ×2 (10:10→13:50)
[2023-03-16] MEDS: THIAMINE 100 MG TABLET PO SCH (10:10)
[2023-03-16] MEDS: OMEPRAZOLE 20 MG CAPSULE PO SCH (10:10)
[2023-03-16] MEDS: NALTREXONE HCL 50 MG TABLET PO SCH (10:10)
[2023-03-16] MEDS: LITHIUM CARBONATE 300 MG TABLET PO SCH (10:11)
[2023-03-16] MEDS: DAPAGLIFLOZIN PROPANEDIOL 5 MG TABLET PO SCH (10:11)
[2023-03-16] MEDS: METOPROLOL SUCCINATE 50 MG ER TABLET PO SCH (10:11)
[2023-03-16] MEDS: BUMETANIDE 1 MG TABLET PO SCH (10:11)
[2023-03-16] MEDS: LISINOPRIL 10 MG TABLET PO SCH (10:12)
[2023-03-16] MEDS: OLANZapine 5 MG RAPDIS TABLET PO PRN (10:49)
[2023-03-16] MEDS: LORazepam 2 MG TABLET PO PRN (10:49)
[2023-03-16 11:15] LABS: GLUCOMETER DEV NAME(LOC) 3E.C; GLUCOSE,POINT OF CARE 213 MG/DL (70-110)
[2023-03-16] MEDS ORDERED: MELA5TAB40 PO (12:05)
[2023-03-16] MEDS ORDERED: GABA-1181 PO (12:05)
[2023-03-16] MEDS ORDERED: PRAZ2 PO (12:05)
[2023-03-16] MEDS ORDERED: OMEG-135 PO (12:05)
[2023-03-16] MEDS ORDERED: LITH300T PO ×4 (12:05→12:10)
[2023-03-16] MEDS ORDERED: RISP2TAB86 PO (12:05)
[2023-03-16] MEDS ORDERED: PARO10TA71 PO (12:05)
[2023-03-16] MEDS ORDERED: TRAZ-257 PO (12:05)
[2023-03-16] MEDS ORDERED: NALT50TA PO (12:05)
[2023-03-17] MEDS ORDERED: LITHIUM CARBONATE 300 MG TABLET PO SCH (09:00)
== END 2023-03-16 18:04 | disposition home or self-care (01) | DRG 750 ==
LOC: EMS 13:20 → 3EI 21:00
PROVIDERS: ADMIT Psychiatry & Neurology Psychiatry; ATTEND Psychiatry & Neurology Psychiatry
DX: F25.9 Schizoaffective disorder, unspecified (principal); I13.0 Hypertensive heart and chronic kidney disease with heart failure and stage 1 through stage 4 chronic kidney disease, or unspecified chronic kidney disease; I43 Cardiomyopathy in diseases classified elsewhere; E11.22 Type 2 diabetes mellitus with diabetic chronic kidney disease; I50.9 Heart failure, unspecified; Z20.822 Contact with and (suspected) exposure to COVID-19; E66.9 Obesity, unspecified; Z68.41 Body mass index [BMI] 40.0-44.9, adult; E78.00 Pure hypercholesterolemia, unspecified; F32.A Depression, unspecified; F17.210 Nicotine dependence, cigarettes, uncomplicated; F41.0 Panic disorder [episodic paroxysmal anxiety]; J45.909 Unspecified asthma, uncomplicated; N18.9 Chronic kidney disease, unspecified; Z55.9 Problems related to education and literacy, unspecified; Z59.9 Problem related to housing and economic circumstances, unspecified; Z63.9 Problem related to primary support group, unspecified; Z65.3 Problems related to other legal circumstances; Z90.81 Acquired absence of spleen; Z91.199 Patient's noncompliance with other medical treatment and regimen due to unspecified reason; Z91.51 Personal history of suicidal behavior
CPT/HCPCS: 71045; 80053; 80061; 80178; 80307; 82962; 83036; 83880; 85025; 86592; 93005; 99285; G0480; Q9967; 36415-L1; 36415-TC